=== PATIENT | female | born 1975 | race Caucasian/White ===

== ENCOUNTER 2019-03-27 21:05 | Inpatient (IN) ==
[2019-03-27] MEDS ORDERED: ONDANSETRON INJ 2 MG/ML 2 ML VIAL IV STA (22:18)
[2019-03-27] MEDS ORDERED: LEVOFLOXACIN/D5W 750 MG/150 ML BAG IV STA (22:18)
[2019-03-27] MEDS ORDERED: SODIUM CHLORIDE 0.9% 1000ML 1,000 ML IV SCH (22:30)
[2019-03-27] MEDS: MoRPHine SULFATE 4 MG/ML 1 ML CARP\\VIAL IV PRN ×2 (22:33→23:46)
[2019-03-27 22:50] LABS: Basophils # (auto) 0.01 K/uL (0-0.2); Basophils % (auto) 0.1 %; Eosinophils # (auto) 0.03 K/uL (0-0.5); Eosinophils % (auto) 0.2 %; Hematocrit (blood only) 43.6 % (37-47); Hemoglobin 15.2 g/dL (12.0-16.0); Immature Granulocytes # (auto) 0.08 K/uL (0.00-0.02); Immature Granulocytes % (auto) 0.5 %; Lymphocytes # (auto) 0.56 K/uL (1.2-3.4); Lymphocytes % (auto) 3.2 %; Mean Corpuscular Hemoglobin 32.9 pg (25-34); Mean Corpuscular Hgb Conc 34.9 g/dL (32-36); Mean Corpuscular Volume 94.4 fL (80-100); Mean Platelet Volume 11.2 fL (7.4-10.4); Monocytes # (auto) 1.41 K/uL (0.11-0.59); Neutrophils # (auto) 15.55 K/uL (1.4-6.5); Platelet Count 275 K/uL (130-400); RDW Coefficient of Variation 13.5 % (11.5-14.5); RDW Standard Deviation 46.5 fL (36.4-46.3); Red Blood Count 4.62 M/uL (4.2-5.4); White Blood Count 17.64 K/uL (4.8-10.8)
[2019-03-27 23:01] LABS: INR 1.1 (0.9-1.1); Partial Thromboplastin Time 28.4 Seconds (21.0-31.0)
[2019-03-27 23:09] LABS: Alanine Aminotransferase 17 U/L (12-78); Albumin Level 2.9 gm/dl (3.4-5.0); Aspartate Aminotransferase 5 U/L (15-37); BUN Creatinine Ratio 10.3 (10-20); Blood Urea Nitrogen 14 mg/dl (7-18); Calcium 9.1 mg/dl (8.5-10.1); Carbon Dioxide 23 mmol/L (21-32); Chloride 101 mmol/L (98-107); Creatinine Clr Calc Pharmacy 69.6 ml/min; Est GFR (Non-African American) 46.6; Glucose 148 mg/dl (70-99); Lipase 42 U/L (73-393); Potassium 3.2 mmol/L (3.5-5.1); Sodium 133 mmol/L (136-145)
[2019-03-27 23:11] LABS: Pregnancy Test, Serum Negative (Negative)
[2019-03-27 23:24] LABS: Albumin Globulin Ratio 0.7 (0.9-2); Alkaline Phosphatase 58 U/L (45-117); Bilirubin,Total 0.7 mg/dl (0.2-1); Globulin 4.2 gm/dl (2.5-4.0); Total Protein 7.1 gm/dl (6.4-8.2); Troponin I < 0.015 ng/ml (0-0.045)
[2019-03-27] MEDS ORDERED: SODIUM CHLORIDE 0.9% 1000ML 1,000 ML IV ONE (23:44)
[2019-03-28] MEDS ORDERED: IOVERSOL 100ml IV PRN (00:26)
[2019-03-28] MEDS ORDERED: metroNIDAZOLE 500 MG/100 ML BAG IV STA (00:29)
[2019-03-28 00:48] LABS: Appearance Urine Cloudy (Clear); Bacteria Urine Automated Negative (Negative); Blood Urine Negative (Negative); Color Urine Dark Yellow; Epithelial Cell Urine Auto >30 /lpf (0-5); Glucose Urine UA Negative (Negative); Ketones Urine Negative (Negative); Leukocyte Esterase Urine Trace (Negative); Nitrite Urine Positive (Negative); Protein Urine 1+ (Negative); RBC Urine Automated 0-4 /hpf (0-4); Specific Gravity Urine > 1.045 (1.000-1.030); Urobilinogen Urine Negative (Negative)
[2019-03-28] MEDS ORDERED: POTASSIUM CHLORIDE 40 MEQ in SODIUM CHLORIDE 0.9% 1000ML 1,000 ML IV STA (01:06)
[2019-03-28 01:18] LABS: Bilirubin Urine Negative (Negative); Ictotest Urine Negative (Negative)
[2019-03-28 01:31] LABS: Cast Urine Automated >30 /lpf (0-5)
[2019-03-28] MEDS: MoRPHine SULFATE 4 MG/ML 1 ML CARP\\VIAL IV PRN (01:54)
--- NOTE | 2019-03-28 02:00 | Emergency Department Note ---
Entered by Joanna Montanez acting as a scribe for Umberto Castellano DO History of Present Illness General Chief complaint: GI Assessment Stated complaint: GI PAIN- DIVERTICULITIS Time Seen by Provider: 03/27/19 22:12 Source: patient History of Present Illness Onset (ago): hour(s) (20) Location: abdomen Severity: similar to prior episodes Pain Consistency: + other (worsening ) Maximum Pain Intensity: 8 Associated symptoms: + fever/chills, + shortness of breath and + other (positive feeling bloated ) Treatments prior to arrival: NSAID (ibuprofen; aleve) and other (augmentin) The patient is a 44 year old female who presents to the Emergency Room with complaints of worsening abdominal pain that began 20 hours prior to arrival. She reports fevers and chills during this time. The patient states that she has been short of breath due to feeling bloated. The patient states that she was in the ED yesterday for similar symptoms that began 5 days ago but was discharged with Augmentin for diverticulitis. The patient states that she has taken 5 doses of the Augmentin. She reports taking Aleve and Ibuprofen for her current symptoms. The patient reports that she does not get a menstrual period because she has a Mirena. Home Medications Home Medications Medication Instructions Recorded Confirmed Type lisinopril-hydrochlorothiazide 1 tab PO QAM 02/04/18 03/27/19 History escitalopram oxalate 20 mg PO QAM 03/07/19 03/27/19 History trazodone 100 mg PO HS 03/07/19 03/27/19 History amoxicillin-pot clavulanate 1 tab PO BID #14 tab 03/25/19 03/27/19 Rx [Augmentin] naproxen 0 mg PO BID PRN 03/25/19 03/27/19 History Allergies Allergy/AdvReac Type Severity Reaction Status Date / Time apple Allergy Hives Verified 03/28/19 01:58 Past Med/Surg History Medical History No acute medical problems Surgical History No pertinent past surgical history Family History Other No pertinent family history in first degree relatives Social History Preferred Language: Amharic Feels Safe at Home: Yes Smoking Status: Current every day smoker Review of Systems See HPI for pertinent positives & negatives. and A total of 10 systems reviewed and were otherwise negative Physical Exam Vital Signs Vital Signs - 24 hr 03/27/19 21:20 03/27/19 22:51 03/27/19 23:41 Temperature 36.6 C Temperature Source Oral Pulse Rate 132 H Pulse Rate [Finger] 105 H Pulse Rhythm [Finger] Regular Pulse Strength [Finger] Normal Respiratory Rate 20 17 Respiratory Effort / Characteristics Non-Labored Spontaneous Respiratory Depth Normal Respiratory Pattern Regular Blood Pressure 97/67 L Blood Pressure [Right Arm] 113/64 Blood Pressure Mean 77 Blood Pressure Mean [Right Arm] 80 Blood Pressure Position [Right Arm] Lying Pulse Oximetry 96 95 96 Oxygen Delivery Method Room Air Room Air Room Air Sepsis Action Taken by Nursing No Action Required 03/28/19 01:12 03/28/19 02:03 Temperature 36.9 C Temperature Source Oral Pulse Rate Pulse Rate [Finger] 102 H 104 H Pulse Rhythm [Finger] Regular Regular Pulse Strength [Finger] Normal Normal Respiratory Rate 18 18 Respiratory Effort / Characteristics Non-Labored Spontaneous Non-Labored Spontaneous Respiratory Depth Normal Normal Respiratory Pattern Regular Regular Blood Pressure Blood Pressure [Right Arm] 101/65 127/71 Blood Pressure Mean Blood Pressure Mean [Right Arm] 77 89 Blood Pressure Position [Right Arm] Lying Lying Pulse Oximetry 96 97 Oxygen Delivery Method Room Air Room Air Sepsis Action Taken by Nursing GENERAL: Patient is awake, alert, and very uncomfortable appearing. EYES: The conjunctivae are clear. The pupils are round and reactive. EARS, NOSE, MOUTH AND THROAT: The nose is without any evidence of any deformity. Mucous membranes are moist.Tongue is midline NECK: The neck is nontender and supple. RESPIRATORY: Normal respiratory effort is noted. There is no evidence of wheezing rhonchi or rales to auscultation. CARDIOVASCULAR: Tachycardic rate and regular rhythm noted. There no murmurs rubs or gallops normal S1 normal S2 GASTROINTESTINAL: The abdomen is moderately distended and diffusely tender. Bowel sounds are present in all quadrants. There appeared to be diffuse guarding especially in the left upper and left lower quadrants. BACK: No midline tenderness or or step-off noted range of motion in flexion extension as well as rotation no signs of muscle spasm noted. MUSCULOSKELETAL/EXTREMITIES: There is no evidence of gross deformity. Full range of motion is noted in the hips and shoulders. SKIN: There is no obvious evidence of any rash. There are no petechiae, pallor or cyanosis noted. NEUROLOGIC: Patient is awake alert and oriented x3. Course Course 2216: Past medical records reviewed. The patient was evaluated in room C1B. A complete history and physical exam was performed. 0051: I discussed the case with Dr. [facility] who accepts the patient for further evaluation. 0054: I discussed the case with Dr. Cruz-General Surgery who states that he will evaluate the patient in the morning. Administered Medications Potassium Chloride 40 meq/ (Sodium Chloride) 1,020 mls @ 250 mls/hr IV .Q4H5M STA Stop: 03/28/19 05:10 Last Admin: 03/28/19 01:48 Dose: 250 mls/hr Documented by: [id number] Ioversol (Optiray 320 100ml) 100 ml IV ONCE PRN PRN Reason: Interaction Checking Stop: 04/01/19 00:25 Last Admin: 03/28/19 00:27 Dose: 93 ml Documented by: [id number] Morphine Sulfate (Morphine Sulfate) 4 mg IV Q15M PRN PRN Reason: Pain Stop: 04/10/19 22:17 Last Admin: 03/28/19 01:54 Dose: 4 mg Documented by: [id number] Admin: 03/27/19 23:46 Dose: 4 mg Documented by: [id number] Admin: 03/27/19 22:33 Dose: 4 mg Documented by: [id number] Discontinued Medications Sodium Chloride (Nss 1000ml) 1,000 mls @ 999 mls/hr IV .Q1H1M CAPRICE Stop: 03/27/19 23:30 Last Infusion: 03/27/19 23:41 Dose: 0 mls/hr Documented by: [id number] Admin: 03/27/19 22:35 Dose: 999 mls/hr Documented by: [id number] Levofloxacin/Dextrose (Levaquin/D5w) 750 mg in 150 mls @ 100 mls/hr IV NOW STA Stop: 03/27/19 23:47 Last Infusion: 03/28/19 00:30 Dose: 0 mls/hr Documented by: [id number] Admin: 03/27/19 22:42 Dose: 100 mls/hr Documented by: [id number] Sodium Chloride (Nss 1000ml) 1,000 mls @ 999 mls/hr IV .Q1H1M ONE Stop: 03/28/19 00:44 Last Infusion: 03/28/19 01:25 Dose: 0 mls/hr Documented by: [id number] Admin: 03/27/19 23:45 Dose: 999 mls/hr Documented by: [id number] Metronidazole (Flagyl) 500 mg in 100 mls @ 100 mls/hr IV NOW STA Stop: 03/28/19 01:28 Last Infusion: 03/28/19 02:01 Dose: 0 mls/hr Documented by: [id number] Admin: 03/28/19 00:33 Dose: 100 mls/hr Documented by: [id number] Ondansetron HCl (Zofran) 4 mg IV NOW STA Stop: 03/27/19 22:19 Last Admin: 03/27/19 22:30 Dose: 4 mg Documented by: [id number] Medical Decision Making Differential Diagnosis Differential diagnoses includes but is not limited to gastritis, peptic ulcer disease, GERD, gallbladder disease, pancreatitis, small bowel obstruction, acute coronary syndrome, pericarditis, ischemic bowel, irritable bowel disease, irritable bowel syndrome, appendicitis, diverticulitis, malignancy, hernia, urinary tract infection, torsion, /ectopic , perforation, trauma, infectious. Medical Records Attestation: I reviewed the patient's medical records. Home Medications Current Medication List: was personally reviewed by me Laboratory Data Attestation: I reviewed the patient's lab results. Result diagrams: 03/27/19 22:38 03/27/19 22:38 Lab Results 03/27/19 03/27/19 03/27/19 Range/Units 22:38 22:38 22:38 WBC (4.8-10.8) K/uL RBC (4.2-5.4) M/uL Hgb (12.0-16.0) g/dL Hct (37-47) % MCV (80-100) fL MCH (25-34) pg MCHC (32-36) g/dL RDW Std Deviation (36.4-46.3) fL RDW Coeff of Sean (11.5-14.5) % Plt Count (130-400) K/uL MPV (7.4-10.4) fL Immature Gran % (Auto) % Neut % (Auto) % Lymph % (Auto) % [place] % (Auto) % Eos % (Auto) % Baso % (Auto) % Immature Gran # (Auto) (0.00-0.02) K/uL Neut # (Auto) (1.4-6.5) K/uL Lymph # (Auto) (1.2-3.4) K/uL [place] # (Auto) (0.11-0.59) K/uL Eos # (Auto) (0-0.5) K/uL Baso # (Auto) (0-0.2) K/uL ESR 88 H (0-21) mm/hr PT 11.0 (9.0-12.0) Seconds INR 1.1 (0.9-1.1) APTT 28.4 (21.0-31.0) Seconds PTT Ratio 1.0 Sodium 133 L (136-145) mmol/L Potassium 3.2 L (3.5-5.1) mmol/L Chloride 101 (98-107) mmol/L Carbon Dioxide 23 (21-32) mmol/L Anion Gap 9.0 (3-11) BUN 14 (7-18) mg/dl Creatinine 1.39 H (0.6-1.2) mg/dl Est Cr Clr Drug Dosing 69.6 ml/min Est GFR ( Amer) 54.0 Est GFR (Non-Af Amer) 46.6 BUN/Creatinine Ratio 10.3 (10-20) Glucose 148 H (70-99) mg/dl Lactate (0.4-2.0) mmol/L Calcium 9.1 (8.5-10.1) mg/dl Magnesium 2.0 (1.8-2.4) mg/dl Total Bilirubin 0.7 (0.2-1) mg/dl AST 5 L (15-37) U/L ALT 17 (12-78) U/L Alkaline Phosphatase 58 (45-117) U/L Troponin I < 0.015 (0-0.045) ng/ml C-Reactive Protein 34.90 H (0-0.29) mg/dl Total Protein 7.1 (6.4-8.2) gm/dl Albumin 2.9 L (3.4-5.0) gm/dl Globulin 4.2 H (2.5-4.0) gm/dl Albumin/Globulin Ratio 0.7 L (0.9-2) Lipase 42 L (73-393) U/L TSH 5.470 H (0.300-4.500) uIu/ml HCG, Qual (Negative) Urine Color Urine Appearance (Clear) Urine pH (4.5-7.5) Ur Specific [place] (1.000-1.030) Urine Protein (Negative) Urine Glucose (UA) (Negative) Urine Ketones (Negative) Urine Blood (Negative) Urine Nitrite (Negative) Urine Bilirubin (Negative) Urine Urobilinogen (Negative) Ur Leukocyte Esterase (Negative) Urine WBC (Auto) (0-5) /hpf Urine RBC (Auto) (0-4) /hpf U Hyaline Cast (Auto) (0-5) /lpf U Epithel Cells (Auto) (0-5) /lpf Urine Bacteria (Auto) (Negative) Ur Renal Epithelial Cell Urine Yeast 03/27/19 03/27/19 03/28/19 Range/Units 22:38 22:38 00:37 WBC 17.64 H (4.8-10.8) K/uL RBC 4.62 (4.2-5.4) M/uL Hgb 15.2 (12.0-16.0) g/dL Hct 43.6 (37-47) % MCV 94.4 (80-100) fL MCH 32.9 (25-34) pg MCHC 34.9 (32-36) g/dL RDW Std Deviation 46.5 H (36.4-46.3) fL RDW Coeff of Sean 13.5 (11.5-14.5) % Plt Count 275 (130-400) K/uL MPV 11.2 H (7.4-10.4) fL Immature Gran % (Auto) 0.5 % Neut % (Auto) 88.0 % Lymph % (Auto) 3.2 % [place] % (Auto) 8.0 % Eos % (Auto) 0.2 % Baso % (Auto) 0.1 % Immature Gran # (Auto) 0.08 H (0.00-0.02) K/uL Neut # (Auto) 15.55 H (1.4-6.5) K/uL Lymph # (Auto) 0.56 L (1.2-3.4) K/uL [place] # (Auto) 1.41 H (0.11-0.59) K/uL Eos # (Auto) 0.03 (0-0.5) K/uL Baso # (Auto) 0.01 (0-0.2) K/uL ESR (0-21) mm/hr PT (9.0-12.0) Seconds INR (0.9-1.1) APTT (21.0-31.0) Seconds PTT Ratio Sodium (136-145) mmol/L Potassium (3.5-5.1) mmol/L Chloride (98-107) mmol/L Carbon Dioxide (21-32) mmol/L Anion Gap (3-11) BUN (7-18) mg/dl Creatinine (0.6-1.2) mg/dl Est Cr Clr Drug Dosing ml/min Est GFR ( Amer) Est GFR (Non-Af Amer) BUN/Creatinine Ratio (10-20) Glucose (70-99) mg/dl Lactate (0.4-2.0) mmol/L Calcium (8.5-10.1) mg/dl Magnesium (1.8-2.4) mg/dl Total Bilirubin (0.2-1) mg/dl AST (15-37) U/L ALT (12-78) U/L Alkaline Phosphatase (45-117) U/L Troponin I (0-0.045) ng/ml C-Reactive Protein (0-0.29) mg/dl Total Protein (6.4-8.2) gm/dl Albumin (3.4-5.0) gm/dl Globulin (2.5-4.0) gm/dl Albumin/Globulin Ratio (0.9-2) Lipase (73-393) U/L TSH (0.300-4.500) uIu/ml HCG, Qual Negative (Negative) Urine Color Dark Yellow Urine Appearance Cloudy A (Clear) Urine pH 5.0 (4.5-7.5) Ur Specific [place] > 1.045 H (1.000-1.030) Urine Protein 1+ H (Negative) Urine Glucose (UA) Negative (Negative) Urine Ketones Negative (Negative) Urine Blood Negative (Negative) Urine Nitrite Positive A (Negative) Urine Bilirubin Negative (Negative) Urine Urobilinogen Negative (Negative) Ur Leukocyte Esterase Trace H (Negative) Urine WBC (Auto) 10-30 H (0-5) /hpf Urine RBC (Auto) 0-4 (0-4) /hpf U Hyaline Cast (Auto) >30 H (0-5) /lpf U Epithel Cells (Auto) >30 H (0-5) /lpf Urine Bacteria (Auto) Negative (Negative) Ur Renal Epithelial Cell Not Reportable Urine Yeast Not Reportable 03/28/19 Range/Units 01:42 WBC (4.8-10.8) K/uL RBC (4.2-5.4) M/uL Hgb (12.0-16.0) g/dL Hct (37-47) % MCV (80-100) fL MCH (25-34) pg MCHC (32-36) g/dL RDW Std Deviation (36.4-46.3) fL RDW Coeff of Sean (11.5-14.5) % Plt Count (130-400) K/uL MPV (7.4-10.4) fL Immature Gran % (Auto) % Neut % (Auto) % Lymph % (Auto) % [place] % (Auto) % Eos % (Auto) % Baso % (Auto) % Immature Gran # (Auto) (0.00-0.02) K/uL Neut # (Auto) (1.4-6.5) K/uL Lymph # (Auto) (1.2-3.4) K/uL [place] # (Auto) (0.11-0.59) K/uL Eos # (Auto) (0-0.5) K/uL Baso # (Auto) (0-0.2) K/uL ESR (0-21) mm/hr PT (9.0-12.0) Seconds INR (0.9-1.1) APTT (21.0-31.0) Seconds PTT Ratio Sodium (136-145) mmol/L Potassium (3.5-5.1) mmol/L Chloride (98-107) mmol/L Carbon Dioxide (21-32) mmol/L Anion Gap (3-11) BUN (7-18) mg/dl Creatinine (0.6-1.2) mg/dl Est Cr Clr Drug Dosing ml/min Est GFR ( Amer) Est GFR (Non-Af Amer) BUN/Creatinine Ratio (10-20) Glucose (70-99) mg/dl Lactate 1.0 (0.4-2.0) mmol/L Calcium (8.5-10.1) mg/dl Magnesium (1.8-2.4) mg/dl Total Bilirubin (0.2-1) mg/dl AST (15-37) U/L ALT (12-78) U/L Alkaline Phosphatase (45-117) U/L Troponin I (0-0.045) ng/ml C-Reactive Protein (0-0.29) mg/dl Total Protein (6.4-8.2) gm/dl Albumin (3.4-5.0) gm/dl Globulin (2.5-4.0) gm/dl Albumin/Globulin Ratio (0.9-2) Lipase (73-393) U/L TSH (0.300-4.500) uIu/ml HCG, Qual (Negative) Urine Color Urine Appearance (Clear) Urine pH (4.5-7.5) Ur Specific [place] (1.000-1.030) Urine Protein (Negative) Urine Glucose (UA) (Negative) Urine Ketones (Negative) Urine Blood (Negative) Urine Nitrite (Negative) Urine Bilirubin (Negative) Urine Urobilinogen (Negative) Ur Leukocyte Esterase (Negative) Urine WBC (Auto) (0-5) /hpf Urine RBC (Auto) (0-4) /hpf U Hyaline Cast (Auto) (0-5) /lpf U Epithel Cells (Auto) (0-5) /lpf Urine Bacteria (Auto) (Negative) Ur Renal Epithelial Cell Urine Yeast Imaging Data Attestation: I personally reviewed and interpreted this imaging study as follows: My Impression: CHEST X-RAY: No acute disease. No free air. No infiltrate. KUB/ABDOMEN 1 VIEW: Nonspecific dilated small bowel loops noted. No free air or definite obstruction. Radiologist's Impression: Radiology results as stated below per my review and the radiologist's interpretation: CT ABDOMEN & PELVIS With Contrast: Small hiatal hernia and some fluid around the distal esophagus. Mild left coronary calcification. Mild abdominal ascites. In the lower mid abdomen loops of small bowel demonstrate mucosal thickening with fluid in the mesentery. Extraluminal foci of gas within the mesentery consistent with contained ruptures and small abscesses. Please also clinically correlate for Crohn's disease. Reactive mucosal thickening noted in the adjacent to the sigmoid colon which has moderate diverticulosis. Scattered diverticulosis of the left colon. Fluid in the colon suggestive of underlying diarrhea. Appendix is normal. Likely reactive mucosal thickening of the partially distended urinary bladder which also has a pocket with air-fluid level seen just superior to it measuring 4.1 x 4 cm. IUD within a retroverted uterus. Small dependent pelvic free fluid 3.4 cm left ovarian cyst L2-3, L3-4 disc space narrowing and vertebral body endplate sclerotic changes. Radiologist: Anusha Gorman MD Study ready at 00:28 and initial results transmitted at 00:43 Communications: Clear Time Type Notes Call Doctor Bowel Perforation with Free Air ECG Data Attestation: I personally reviewed and interpreted this ECG as follows: Indication: + abdominal pain Rate (beats per minute): 115 Rhythm: + sinus tachycardia ECG ST segments: no ST depression and no ST elevation ECG Findings: no PACs and no PVCs Comparison ECG Date: no prior available Blood Pressure Blood Pressure Findings: Normal blood pressure MDM Narrative The patient is a 44-year-old female who presented to the emergency department for an evaluation of abdominal pain. The patient was seen in our facility recently for similar complaints at that time she had a CAT scan which showed diverticulitis. She was started on Augmentin but presents emergency department today with severe pain. The patient's history and physical exam appear to be consistent with worsening diverticulitis. White blood cell count was elevated. This prompted a repeat CT of the abdomen and pelvis. The patient was treated with IV fluids IV pain medication and IV antiemetics. She was also started on IV antibiotics. I discussed the patient's laboratory and radiographic studies with her. She was found to have severe changes on her CAT scan which were worrisome for diverticulitis with perforation. I discussed this case with the on-call [facility] hospitalist group as well as the on-call general surgeon. They have agreed to evaluate the patient for further management and disposition. The patient was feeling much better on subsequent reevaluation. Impression & Plan Diverticulitis of intestine with perforation and abscess, Abdominal pain Discharge Plan Visit Data Chief Complaint: GI Assessment Stated Complaint: GI PAIN- DIVERTICULITIS ED Provider: Umberto Castellano Discharge Problem: Diverticulitis of intestine with perforation and abscess, Abdominal pain Patient Disposition: Being Evaluated by Hospitalist Forms Stand Alone Forms: My [facility] Prescriptions Prescriptions: No Action lisinopril-hydrochlorothiazide 20-12.5 mg tablet 1 tab PO QAM RF: 0 trazodone 100 mg tablet 100 mg PO HS RF: 0 escitalopram oxalate 20 mg tablet 20 mg PO QAM RF: 0 naproxen 250 mg Tablet 0 mg PO BID PRN (Reason: Pain) RF: 0 amoxicillin-pot clavulanate [Augmentin] 875-125 mg tablet 1 tab PO BID Qty: 14 RF: 0 Referrals Referrals: Connie Jaramillo DO [Primary Care Provider] - Discharge Problem: Diverticulitis of intestine with perforation and abscess Qualifiers: Diverticulitis site: unspecified part of intestinal tract Diverticulitis bleeding: without bleeding Qualified Code(s): K57.80 - Diverticulitis of intestine, part unspecified, with perforation and abscess without bleeding Abdominal pain Qualifiers: Abdominal location: generalized Qualified Code(s): R10.84 - Generalized abdominal pain The scribe's documentation has been prepared under my direction and personally reviewed by me in its entirety. I confirm that the note above accurately reflects all work, treatment, procedures, and medical decision making performed by me.
--- NOTE | 2019-03-28 02:26 | History & Physical Report ---
Date of Service March 28, 2019 Assessment & Plan (1) Severe sepsis: SIRS plus ARF Possible sources : Complicated diverticulitis Complicated UTI secondary to above Possible aspiration pneumonitis hypertension, stable anxiety/mood disorder, at baseline ongoing tobacco abuse. Hyperglycemia rule out DM Medical telemetry Bowel rest Cultures, check lactic acid IV Zosyn Surgery consult RE complicated diverticulitis (ER provider already in touch with Dr. Cruz.) Outpatient colonoscopy at some point Monitor creatinine response to IV fluids, hold home lisinopril, HCTZ until creatinine at baseline Check hemoglobin A1c Nicotine patch PRN DVT prophylaxis. Heparin subcu Full code History of Present Illness Chief Complaint: Worsening abdominal pain Primary Care Provider: Connie Jaramillo DO History obtained from patient, family, and records. Medical history significant for hypertension, anxiety/mood disorder, ongoing tobacco abuse. 5-day history of achy lower abdominal pain going to the back with dysuria, some diarrhea, and nausea and fever. Patient sent by PCP to ER last March 25. CT abdomen pelvis showed uncomplicated sigmoid diverticulitis. No abscess. Inflammatory changes associated with the urinary bladder. Patient discharged on Augmentin course. Worsening abdominal discomfort despite compliance with antibiotic regimen. Fever, emesis, some constipation. Junky cough symptoms with shortness of breath. At the ER, patient received IV Levaquin and Flagyl for complicated diverticulitis. Medical History as above No prior colonoscopies. 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 Allergies Allergy/AdvReac Type Severity Reaction Status Date / Time apple Allergy Hives Verified 03/28/19 01:58 Home Medications Home Medications Medication Instructions Recorded Confirmed Type lisinopril-hydrochlorothiazide 1 tab PO QAM 02/04/18 03/27/19 History escitalopram oxalate 20 mg PO QAM 03/07/19 03/27/19 History trazodone 100 mg PO HS 03/07/19 03/27/19 History amoxicillin-pot clavulanate 1 tab PO BID #14 tab 03/25/19 03/27/19 Rx [Augmentin] naproxen 0 mg PO BID PRN 03/25/19 03/27/19 History Past Med/Surg History Medical History No acute medical problems Surgical History No pertinent past surgical history Family History Other No pertinent family history in first degree relatives Social History Preferred Language: [place] Feels Safe at Home: Yes Smoking Status: Current every day smoker Review of Systems Review of Systems: As per HPI, all 10 systems reviewed, all other ROS negative Physical Exam Physical Exam: GENERAL: Comfortable, obese, slightly anxious, no respiratory distress SKIN: Normal color, warm HEENT: Bespectacled, pink palpebral conjunctivae, no ptosis, dry buccal mucosa NECK : Supple, short neck, no tenderness CHEST : CTA, no tenderness HEART : Tachycardic , no obvious murmurs ABDOMEN: Some distention, hypogastric tenderness EXTREMITIES : No LE swelling/tenderness, no other conspicuous deformities noted NEUROLOGIC : Coherent, no facial asymmetry, no other gross focality Results & Data Vital Signs (Past 12 Hours) Vital Signs Temp Pulse Pulse Resp BP BP Pulse Ox 03/28/19 02:03 104 H 18 127/71 97 03/28/19 01:12 36.9 C 102 H 18 101/65 96 03/27/19 23:41 105 H 17 113/64 96 03/27/19 22:51 95 03/27/19 21:20 36.6 C 132 H 20 97/67 L 96 Laboratory Results Laboratory Results WBC 17.64 K/uL (4.8-10.8) H 03/27/19 22:38 RBC 4.62 M/uL (4.2-5.4) 03/27/19 22:38 Hgb 15.2 g/dL (12.0-16.0) 03/27/19 22:38 Hct 43.6 % (37-47) 03/27/19 22:38 MCV 94.4 fL (80-100) 03/27/19 22:38 MCH 32.9 pg (25-34) 03/27/19 22:38 MCHC 34.9 g/dL (32-36) 03/27/19 22:38 RDW Std Deviation 46.5 fL (36.4-46.3) H 03/27/19 22:38 RDW Coeff of Sean 13.5 % (11.5-14.5) 03/27/19 22:38 Plt Count 275 K/uL (130-400) 03/27/19 22:38 MPV 11.2 fL (7.4-10.4) H 03/27/19 22:38 Immature Gran % (Auto) 0.5 % 03/27/19 22:38 Neut % (Auto) 88.0 % 03/27/19 22:38 Lymph % (Auto) 3.2 % 03/27/19 22:38 [place] % (Auto) 8.0 % 03/27/19 22:38 Eos % (Auto) 0.2 % 03/27/19 22:38 Baso % (Auto) 0.1 % 03/27/19 22:38 Immature Gran # (Auto) 0.08 K/uL (0.00-0.02) H 03/27/19 22:38 Neut # (Auto) 15.55 K/uL (1.4-6.5) H 03/27/19 22:38 Lymph # (Auto) 0.56 K/uL (1.2-3.4) L 03/27/19 22:38 [place] # (Auto) 1.41 K/uL (0.11-0.59) H 03/27/19 22:38 Eos # (Auto) 0.03 K/uL (0-0.5) 03/27/19 22:38 Baso # (Auto) 0.01 K/uL (0-0.2) 03/27/19 22:38 ESR 88 mm/hr (0-21) H 03/27/19 22:38 PT 11.0 Seconds (9.0-12.0) 03/27/19 22:38 INR 1.1 (0.9-1.1) 03/27/19:38 APTT 28.4 Seconds (21.0-31.0) 03/27/19: PTT Ratio 1.0 03/27/19 22:38 Sodium 133 mmol/L (136-145) L 03/27/19 22:38 Potassium 3.2 mmol/L (3.5-5.1) L 03/27/19:38 Chloride 101 mmol/L (98-107) 03/27/19:38 Carbon Dioxide 23 mmol/L (21-32) 03/27/19 22:38 Anion Gap 9.0 (3-11) 03/27/19 22:38 BUN 14 mg/dl (7-18) 03/27/19 22:38 Creatinine 1.39 mg/dl (0.6-1.2) H 03/27/19 22:38 Est Cr Clr Drug Dosing 69.6 ml/min 03/27/19 22:38 Est GFR ( Amer) 54.0 03/27/19 22:38 Est GFR (Non-Af Amer) 46.6 03/27/19 22:38 BUN/Creatinine Ratio 10.3 (10-20) 03/27/19 22:38 Glucose 148 mg/dl (70-99) H 03/27/19 22:38 Lactate 1.0 mmol/L (0.4-2.0) 03/28/19 01:42 Calcium 9.1 mg/dl (8.5-10.1) 03/27/19 22:38 Magnesium 2.0 mg/dl (1.8-2.4) 03/27/19 22:38 Total Bilirubin 0.7 mg/dl (0.2-1) 03/27/19 22:38 AST 5 U/L (15-37) L 03/27/19 22:38 ALT 17 U/L (12-78) 03/27/19 22:38 Alkaline Phosphatase 58 U/L (45-117) 03/27/19 22:38 Troponin I < 0.015 ng/ml (0-0.045) 03/27/19 22:38 C-Reactive Protein 34.90 mg/dl (0-0.29) H 03/27/19 22:38 Total Protein 7.1 gm/dl (6.4-8.2) 03/27/19 22:38 Albumin 2.9 gm/dl (3.4-5.0) L 03/27/19 22:38 Globulin 4.2 gm/dl (2.5-4.0) H 03/27/19 22:38 Albumin/Globulin Ratio 0.7 (0.9-2) L 03/27/19 22:38 Lipase 42 U/L (73-393) L 03/27/19 22:38 TSH 5.470 uIu/ml (0.300-4.500) H 03/27/19 22:38 HCG, Qual Negative (Negative) 03/27/19 22:38 Urine Color Dark Yellow 03/28/19 00:37 Urine Appearance Cloudy (Clear) A 03/28/19 00:37 Urine pH 5.0 (4.5-7.5) 03/28/19 00:37 Ur Specific [place] > 1.045 (1.000-1.030) H 03/28/19 00:37 Urine Protein 1+ (Negative) H 03/28/19 00:37 Urine Glucose (UA) Negative (Negative) 03/28/19 00:37 Urine Ketones Negative (Negative) 03/28/19: Urine Blood Negative (Negative) 03/28/19: Urine Nitrite Positive (Negative) A 03/28/19 00:37 Urine Bilirubin Negative (Negative) 03/28/19 00:37 Urine Urobilinogen Negative (Negative) 03/28/19 00:37 Ur Leukocyte Esterase Trace (Negative) H 03/28/19 00:37 Urine WBC (Auto) 10-30 /hpf (0-5) H 03/28/19 00:37 Urine RBC (Auto) 0-4 /hpf (0-4) 03/28/19 00:37 U Hyaline Cast (Auto) >30 /lpf (0-5) H 03/28/19 00:37 U Epithel Cells (Auto) >30 /lpf (0-5) H 03/28/19 00:37 Urine Bacteria (Auto) Negative (Negative) 03/28/19 00:37 Ur Renal Epithelial Cell Not Reportable 03/28/19 00: Urine Yeast Not Reportable 03/28/19 00:[address] abdomen pelvis initial read mild abdominal ascites, sigmoid diverticulitis with extraluminal foci of gas within the mesentery consistent with contained rupture and small abscesses. Reactive changes noted with partially distended urinary bladder. IUD within retroverted uterus. Chest x-ray as per my interpretation atelectasis EKG as per my interpretation : rate 115, sinus tachycardia, normal axis, no ischemia
[2019-03-28 02:31] LABS: T4 Free Thyroxine 1.78 ng/dl (0.8-1.6)
[2019-03-28] MEDS ORDERED: PIPERACILL/TAZOBAC CONSULT ACTIVE PRN (03:45)
[2019-03-28] MEDS ORDERED: PROMETHAZINE HCL 12.5 MG in SODIUM CHLORIDE 0.9% 50 ML IV PRN (03:45)
[2019-03-28] MEDS ORDERED: PIPERACILLIN/TAZOBACTAM 4.5 GM/120 ML BAG IV ONE (04:00)
[2019-03-28] MEDS: POTASSIUM CHLORIDE 40 MEQ in SODIUM CHLORIDE 0.9% 1000ML 1,000 ML IV SCH ×2 (04:51→18:05)
[2019-03-28] MEDS ORDERED: INFLUENZA ADMINISTRATION CHARGE ONE (05:05)
[2019-03-28] MEDS ORDERED: INFLUENZA VIRUS QUAD VACCINE 0.5 ML SYR IM ONE (05:05)
[2019-03-28] MEDS: POTASSIUM CHLORIDE / WTR 10 MEQ/100 ML PLCT IV SCH ×4 (05:25→09:13)
[2019-03-28] MEDS: NICOTINE 21 MG/24 HR TDSY TD SCH (05:25)
[2019-03-28 05:57] LABS: Hematocrit (blood only) 33.9 % (37-47); Hemoglobin 11.5 g/dL (12.0-16.0); Mean Corpuscular Hemoglobin 32.1 pg (25-34); Mean Corpuscular Hgb Conc 33.9 g/dL (32-36); Mean Corpuscular Volume 94.7 fL (80-100); Mean Platelet Volume 11.1 fL (7.4-10.4); Platelet Count 223 K/uL (130-400); RDW Coefficient of Variation 13.5 % (11.5-14.5); RDW Standard Deviation 47.2 fL (36.4-46.3); Red Blood Count 3.58 M/uL (4.2-5.4); White Blood Count 11.17 K/uL (4.8-10.8)
[2019-03-28 05:58] LABS: Eosinophils # (auto) 0.05 K/uL (0-0.5); Eosinophils % (auto) 0.4 %; Immature Granulocytes # (auto) 0.03 K/uL (0.00-0.02); Immature Granulocytes % (auto) 0.3 %; Lymphocytes # (auto) 0.57 K/uL (1.2-3.4); Lymphocytes % (auto) 5.1 %; Monocytes % (auto) 6.3 %; Neutrophils # (auto) 9.82 K/uL (1.4-6.5); Neutrophils % (auto) 87.9 %
--- NOTE | 2019-03-28 06:07 | Surgery Consultation ---
Date of Consultation March 28, 2019 Assessment & Plan (1) Diverticulitis: Patient appears to be mildly improved overnight He does have relatively severe diverticulitis inflammation of the colon and small bowel in the pelvis She will require limited p.o. intake for at least 48 hours ice only-for bowel rest I suspect she will need at least 4 to 5 days of IV antibiotics in the hospital and possibly 2 to 3 weeks of antibiotics possible IV as an outpatient Will likely undergo repeat CAT scan in several days ending on her progress History of Present Illness Attending Physician: Alexander Juan MD History of Present Illness 44-year-old female presenting to the emergency room for the second time in several days with abdominal pain She was treated with p.o. antibiotics for diverticulitis and the pain worsened with Alberto CT findings Have significant inflammation in the pelvis possible contained perforation with no evidence of overt abscess She is currently on IV antibiotics and does feel better-we will continue the Zosyn May consider an ID consult biotic choices in the future depending on progress Allergies Allergy/AdvReac Type Severity Reaction Status Date / Time apple Allergy Hives Verified 03/28/19 01:58 Home Medications Home Medications Medication Instructions Recorded Confirmed Type lisinopril-hydrochlorothiazide 1 tab PO QAM 02/04/18 03/27/19 History escitalopram oxalate 20 mg PO QAM 03/07/19 03/27/19 History trazodone 100 mg PO HS 03/07/19 03/27/19 History amoxicillin-pot clavulanate 1 tab PO BID #14 tab 03/25/19 03/27/19 Rx [Augmentin] naproxen 0 mg PO BID PRN 03/25/19 03/27/19 History Patient History Medical History No acute medical problems Surgical History No pertinent past surgical history Family History Other No pertinent family history in first degree relatives Social History Preferred Language: Moroccan Communication Ability: Effective Beliefs That Will Affect Care: None Current Living Situation: Parent Other Information That Helps Us Care for You: No Feels Safe at Home: Yes Smoking Status: Current every day smoker Tobacco Type: cigarettes ; Cigarettes Per Day: 10-20 ; Do You Dip or Chew Tobacco: No ; Second Hand Exposure: No ; Tobacco Cessation Education Requested by Patient: No Hx Alcohol Use: Yes Hx Substance Use: No Review of Systems Review of Systems: All systems reviewed & are unremarkable except as noted in HPI & below Physical Exam Physical Exam: He is awake and alert and appears no distress with normal affect Her abdomen is mildly distended with decreased bowel sounds and lower abdominal discomfort to palpation Constitutional: well developed and well nourished; no acute distress Eyes: + anicteric sclerae Respiratory: normal respiratory effort; no respiratory distress Cardiovascular: Rate/Rhythm: regular rate Skin: no rashes, warm and dry Neurologic: awake Psychiatric: Orientation: alert Results & Data Vital Signs (Past 12 Hours) Vital Signs Temp Pulse Pulse Resp BP BP BP 03/28/19 04:56 36.6 C 105 H 18 97/64 L 03/28/19 02:03 104 H 18 127/71 03/28/19 01:12 36.9 C 102 H 18 101/65 03/27/19 23:41 105 H 17 113/64 03/27/19 22:51 03/27/19 21:20 36.6 C 132 H 20 97/67 L Pulse Ox 03/28/19 04:56 95 03/28/19 02:03 97 03/28/19 01:12 96 03/27/19 23:41 96 03/27/19 22:51 95 03/27/19 21:20 96 PG Care Time/CCT Total # of Minutes Spent Total Time Spent with Patient: Total time spent is greater than 50% in coordination of care (as documented) at patient's floor/unit and/or counseling patient: Coding Level of Care Code 26385 Inpt Consult Level 4 Diagnoses Diverticulitis K57.92
[2019-03-28] MEDS: HEPARIN SOD 5,000 UNIT/0.5 ML VIAL SQ SCH ×3 (06:14→21:18)
[2019-03-28 06:20] LABS: Estimated Average Glucose 131 mg/dl; Hemoglobin A1C 6.2 % (4.5-5.6)
[2019-03-28 06:29] LABS: BUN Creatinine Ratio 17.1 (10-20); Creatinine Clr Calc Pharmacy 112.4 ml/min; Est GFR (African American) 93.9; Potassium 3.6 mmol/L (3.5-5.1)
--- NOTE | 2019-03-28 06:36 | XRay Report ---
KUB HISTORY: Acute generalized abdominal pain with constipation and diarrhea pain COMPARISON: CT abdomen and pelvis of same day FINDINGS: There is a single mildly dilated loop of small bowel within central abdomen, 3.4 cm transve rsely. There are a few right hemicolon fluid levels noted. IUD of the central pelvis. No renal calcu li. No ureteral calculi. No pneumoperitoneum or pneumatosis. No fracture. IMPRESSION: 1. Dilated small bowel of the central abdomen with right hemicolon air-fluid levels. No high-grade deborah wel obstruction identified. Please refer to CT abdomen and pelvis study of same day for further detai ls. ACT 112: Negative or not required by law. The above report was generated using voice recognition software. It may contain grammatical, syntax o r spelling errors. Electronically signed by: Erik Carrillo M.D. 03/28/2019 6:34 AM
--- NOTE | 2019-03-28 07:00 | XRay Report ---
XR chest 1V portable CLINICAL HISTORY: pain COMPARISON STUDY: No previous studies for comparison. FINDINGS: Lung volumes are normal. Lungs are clear. There is no pneumothorax or pleural effusion. Car diac size is normal. Mediastinal contours are normal. There is no evidence for pulmonary edema. IMPRESSION: No acute cardiopulmonary findings. ACT 112: Negative or not required by law. Electronically signed by: Cedric Josue M.D. 03/28/2019 6:59 AM
--- NOTE | 2019-03-28 07:32 | CT Scan Report ---
CT abd pelvis IV con only CLINICAL HISTORY: 44 years-old Female presenting with worsening generalized abdominal pain, recent di verticulitis. TECHNIQUE: Multidetector CT of the abdomen and pelvis was performed after the administration of intra venous contrast. IV contrast: 92 mL of Optiray 320. One or more dose lowering techniques were used co nsistent with the principles of ALARA (as low as reasonably achievable), including automatic exposure control, mA or kV adjustment to individual patient size, and/or use of iterative reconstruction. COMPARISON: Noncontrast CT of the abdomen and pelvis from 03/25/2019. CT DOSE (mGy.cm): The estimated cumulative dose is 1555.21 mGy.cm. FINDINGS: Head Shipper topogram: Unremarkable. Lung bases: Normal heart size. Coronary artery calcification. No pericardial or pleural effusion. No focal infiltrate or nodule at the lung bases. Liver: Normal morphology. No liver lesion. Patent hepatic vasculature. Biliary: No intrahepatic or extrahepatic biliary ductal dilatation. Normal gallbladder. Pancreas: Normal. Spleen: Normal. Adrenal glands: Normal. Kidneys and ureters: Punctate nonobstructing LEFT renal calculus at the upper pole. Normal renal pare nchyma. No hydronephrosis. Ureters nondistended. Bladder: Underdistended though significant bladder wall thickening and perivesicular fat infiltration is present. Pelvic organs: Intrauterine device is in place. Globular morphology of the posterior wall of the fund us may suggest an underlying fibroid. Ovaries normal. Bowel: Mild wall thickening of the rectum. Fluid throughout the colon suggests a diarrheal state. Wal l thickening of the proximal to mid sigmoid colon with diverticulosis. While there is pericolonic inf lammatory change in this region, this does not appear to be epicenter of the worst inflammation. The appendix is normal. Significantly thickened and inflamed small bowel in the superior pelvis, which is distal ileum proximally 20 cm upstream from the terminal ileum. This affects a fairly extensive nargis th of small bowel (likely greater than 30 cm). Significant surrounding perienteric fat infiltration. Multiple foci of extraluminal gas primarily in the superior pelvis that are also visualized in the up per abdomen. Gas is also contained within several collections within the mesentery and between the lo ops of bowel. The best delineated collection is noted in the central pelvis measuring 3 cm (series 3 image 376). There is a second collection along the superior and anterior bladder measuring approximat sriram 3.5 cm (series 3 image 417). There is also more mild bowel wall thickening in the jejunum. No bow el obstruction. Peritoneal cavity: Scattered interloop fluid with small volume ascites in the abdomen and pelvis. Num erous foci of extraluminal gas, several contained within collections in several along the superior pe lvis with limited amounts in the upper abdomen. Trace peritoneal enhancement may be present in the cu l-de-sac. Lymph nodes: No enlarged lymph nodes in the abdomen or pelvis. Vasculature: Atherosclerosis of the normal caliber abdominal aorta. IVC patent. Abdominal wall: Normal. Musculoskeletal: Degenerative changes of the spine. IMPRESSION: 1. Significant interval worsening of inflammatory changes in the superior pelvis, which appear to em anate from small bowel rather than the sigmoid colon. Numerous foci of extraluminal gas primarily in the superior pelvis though to a lesser extent in the upper abdomen consistent with perforated hollow viscus. Several developing abscesses are evident in the superior pelvis measuring up to 3.5 cm. Findi ngs are most suggestive of a severe infectious or inflammatory enteritis. Crohn's disease is not favo red though is not excluded. Patent vasculature without evidence to suggest an ischemic etiology. Find ings do not appear to be primarily a result of colonic diverticulosis. Surgical consultation is recom mended. 2. Evidence of developing peritonitis. 3. Significant likely secondary inflammatory change of the urinary bladder. 4. IUD in place. The report will be called/faxed according to standard departmental protocol. ACT 112: Negative or not required by law. Electronically signed by: Corey Brooks M.D. 03/28/2019 7:31 AM
[2019-03-28] MEDS: ACETAMINOPHEN 1,000 MG/100 ML VIAL IV PRN (07:43)
[2019-03-28] MEDS: ESCITALOPRAM OXALATE 20 MG TAB PO SCH (08:07)
[2019-03-28] MEDS: ALBUT/IPRATROP 3MG/0.5MG NEB 3 ML VIAL NEB PRN ×2 (10:30→20:14)
[2019-03-28] MEDS: PIPERACILLIN/TAZOBACTAM 4.5 GM/120 ML BAG IV SCH ×2 (10:44→18:04)
--- NOTE | 2019-03-28 11:03 | Hospitalist Progress Note ---
Date of Service March 28, 2019 Assessment & Plan (1) Sepsis: Meet sepsis criteria on admission with tachycardia, elevated WBC and diverticulitis on CT scan Received Levaquin and flagyl IV in the ER WBC 17K on admission, improves to 11K today UA positive for nitrate and trace leukocytes Urine cx and blood cx pending Currently on IV Zosyn Continue Monitor CBC (2) Diverticulitis: (3) Abdominal pain: Present on admission with worsening abdominal pain associated with bloating Failed outpatient treatment with Augmentin CT abd showed significant interval worsening of inflammatory changes in the superior pelvis, which appear to emanate from small bowel rather than the sigmoid colon. Numerous foci of extraluminal gas primarily in the superior pelvis though to a lesser extent in the upper abdomen consistent with perforated hollow viscus. Several developing abscesses are evident in the superior pelvis measuring up to 3.5 cm Surgery on board recommended conservative management with IV Zosyn and bowel rest Continue to keep NPO with ice and chips Continue pain control and IVF Will need to arrange for outpatient colonoscopy in 6 to 8 weeks MARISEL Possible related to poor oral intake Creatinine on admission 1.3 Creatinine improves to 0.8 after IVF Will continue to hold HCTZ Will resume Lisinopril in am Continue monitor BMP HTN BP stable Continue to hold HCTZ Will resume Lisinopril in am DVT px on heparin subq Code Status Full Code Admission and Anticipated Discharge Date Admission Date: March 28, 2019 Subjective Pt was seen and examined. Lying in bed with no distress Pt said that she continues to have pain but pain slightly improves compared to yesterday Pt said that pain is located in the lower abdomen and feels bloated She said that she felt nauseated Denies any chest pain, palpitation and SOB Physical Exam Physical Exam: General- No acute distress Head- atraumatic Eyes- PERRL, EOMI, ENT- oropharynx clear Neck- supple, no JVD Lungs- clear to auscultation Heart- regular rhythm; no murmur Abdomen- +tenderness, +mild distended Extremities- no calf tenderness Neuro- alert, oriented x 3; PERRL, EOMI; no facial palsy; no dysarthria Skin- warm & dry Results & Data ([facility]) Vital Signs (Past 12 Hours) Vital Signs Temp Pulse Resp BP BP Pulse Ox 03/28/19 10:32 103 H 14 96 03/28/19 07:45 36.6 C 99 H 16 110/71 94 03/28/19 04:56 36.6 C 105 H 18 97/64 L 95 03/28/19 02:03 104 H 18 127/71 97 03/28/19 01:12 36.9 C 102 H 18 101/65 96 03/27/19 23:41 105 H 17 113/64 96 (1) Abdominal pain Abdominal location: generalized Qualified Code(s): R10.84 - Generalized abdominal pain
--- NOTE | 2019-03-28 16:39 | Electrocardiogram Report ---
Test Reason : Blood Pressure : / mmHG Vent. Rate : 115 BPM Atrial Rate : 115 BPM P-R Int : 134 ms QRS Dur : 072 ms QT Int : 330 ms P-R-T Axes : 032 047 058 degrees QTc Int : 456 ms Sinus tachycardia Otherwise normal ECG No previous ECGs available Confirmed by Sebastian Diez ([id number]) on 03/28/2019 4:38:46 PM Referred By: REFERRED SELF Confirmed By:Sebastian Diez
[2019-03-28] MEDS: HYDROmorphone INJ 0.5 MG/0.5 ML SYR IV PRN (18:16)
[2019-03-28] MEDS ORDERED: ONDANSETRON INJ 2 MG/ML 2 ML VIAL IV PRN (18:29)
[2019-03-28] MEDS: TRAZODONE HCL 100 MG TAB PO SCH (21:18)
[2019-03-29] MEDS: PIPERACILLIN/TAZOBACTAM 4.5 GM/120 ML BAG IV SCH ×3 (01:50→17:44)
[2019-03-29] MEDS: HYDROmorphone INJ 0.5 MG/0.5 ML SYR IV PRN ×2 (02:24→07:36)
[2019-03-29] MEDS: HEPARIN SOD 5,000 UNIT/0.5 ML VIAL SQ SCH ×3 (05:29→23:06)
[2019-03-29 07:58] LABS: Hematocrit (blood only) 33.8 % (37-47); Hemoglobin 11.3 g/dL (12.0-16.0); Mean Corpuscular Hgb Conc 33.4 g/dL (32-36); Mean Corpuscular Volume 95.8 fL (80-100); Mean Platelet Volume 10.9 fL (7.4-10.4); Platelet Count 229 K/uL (130-400); RDW Coefficient of Variation 13.8 % (11.5-14.5); Red Blood Count 3.53 M/uL (4.2-5.4); White Blood Count 9.89 K/uL (4.8-10.8)
[2019-03-29] MEDS: POTASSIUM CHLORIDE 40 MEQ in SODIUM CHLORIDE 0.9% 1000ML 1,000 ML IV SCH (08:04)
[2019-03-29 08:42] LABS: BUN Creatinine Ratio 24.7 (10-20); Calcium 8.6 mg/dl (8.5-10.1); Creatinine Clr Calc Pharmacy 170.5 ml/min; Est GFR (African American) 131.8; Est GFR (Non-African American) 113.7; Potassium 4.2 mmol/L (3.5-5.1)
[2019-03-29] MEDS: ESCITALOPRAM OXALATE 20 MG TAB PO SCH (09:24)
[2019-03-29] MEDS: lisinopriL 20 MG TAB PO SCH (09:24)
[2019-03-29] MEDS: NICOTINE 21 MG/24 HR TDSY TD SCH (09:25)
--- NOTE | 2019-03-29 10:11 | Surgery Progress Note ---
Date of Service March 29, 2019 Assessment & Plan (1) Diverticulitis of intestine with perforation and abscess: Diverticulitis or enteritis with small abscess formation. Subjectively improved today WBC has decreased Would continue with IV antibiotics and conservative measures for now. Subjective Feels some better today Had pain through the night but that has decreased Denies nausea and vomiting Had a few episodes of diarrhea this morning Physical Exam Gastrointestinal (Abdomen): Inspection/Auscultation: normal bowel sounds; abdomen not distended Percussion/Palpation: + abdomen tender (But less so) and abdomen soft Results & Data Vital Signs (Past 12 Hours) Vital Signs Temp Pulse Pulse Resp BP BP Pulse Ox 03/29/19 07:12 36.7 C 95 H 18 116/80 97 03/29/19 07:07 96 H 03/29/19 03:32 36.6 C 92 H 18 107/69 95 03/28/19 23:32 36.7 C 96 H 20 107/70 95 03/28/19 23:00 100 H Laboratory Results 03/29/19 03/29/19 Range/Units 07:42 07:42 WBC 9.89 (4.8-10.8) K/uL RBC 3.53 L (4.2-5.4) M/uL Hgb 11.3 L (12.0-16.0) g/dL Hct 33.8 L (37-47) % MCV 95.8 (80-100) fL MCH 32.0 (25-34) pg MCHC 33.4 (32-36) g/dL RDW Std Deviation 48.0 H (36.4-46.3) fL RDW Coeff of Sean 13.8 (11.5-14.5) % Plt Count 229 (130-400) K/uL MPV 10.9 H (7.4-10.4) fL Sodium 140 (136-145) mmol/L Potassium 4.2 D (3.5-5.1) mmol/L Chloride 111 H (98-107) mmol/L Carbon Dioxide 24 (21-32) mmol/L Anion Gap 5.0 (3-11) BUN 14 (7-18) mg/dl Creatinine 0.58 L D (0.6-1.2) mg/dl Est Cr Clr Drug Dosing 170.5 ml/min Est GFR ( Amer) 131.8 Est GFR (Non-Af Amer) 113.7 BUN/Creatinine Ratio 24.7 H (10-20) Glucose 82 (70-99) mg/dl Calcium 8.6 (8.5-10.1) mg/dl (1) Diverticulitis of intestine with perforation and abscess Diverticulitis bleeding: without bleeding Diverticulitis site: unspecified part of intestinal tract Qualified Code(s): K57.80 - Diverticulitis of intestine, part unspecified, with perforation and abscess without bleeding
[2019-03-29] MEDS: ALBUT/IPRATROP 3MG/0.5MG NEB 3 ML VIAL NEB PRN (14:09)
--- NOTE | 2019-03-29 15:59 | Hospitalist Progress Note ---
Date of Service March 29, 2019 Assessment & Plan (1) Sepsis: Meet sepsis criteria on admission with tachycardia, elevated WBC and diverticulitis on CT scan Received Levaquin and flagyl IV in the ER WBC 17K on admission, continue improving to 9K today UA positive for nitrate and trace leukocytes Urine cx and blood cx no growth Currently on IV Zosyn Case discussed with surgery and ok to start on clear liquid diet Clinically improves (2) Diverticulitis: (3) Abdominal pain: Present on admission with worsening abdominal pain associated with bloating Failed outpatient treatment with Augmentin CT abd showed significant interval worsening of inflammatory changes in the superior pelvis, which appear to emanate from small bowel rather than the sigmoid colon. Numerous foci of extraluminal gas primarily in the superior pelvis though to a lesser extent in the upper abdomen consistent with perforated hollow viscus. Several developing abscesses are evident in the superior pelvis measuring up to 3.5 cm Surgery on board recommended conservative management with IV Zosyn and bowel rest Continue to keep NPO with ice and chips Continue pain control and IVF Will need to arrange for outpatient colonoscopy in 6 to 8 weeks MARISEL Possible related to poor oral intake Creatinine on admission 1.3 Creatinine improves to 0.8 after IVF Will continue to hold HCTZ Will resume Lisinopril in am Continue monitor BMP HTN BP stable Continue to hold HCTZ Will resume Lisinopril in am DVT px on heparin subq Code Status Full Code Admission and Anticipated Discharge Date Admission Date: March 28, 2019 Subjective Pt was seen and examined Lying in bed with no distress Pt said that pain slightly improves She said that she had diarrhea today She would like to eat something because she is hungry Denies any chest pain, palpitation and dizziness Physical Exam Physical Exam: General- No acute distress Head- atraumatic Eyes- PERRL, EOMI, ENT- oropharynx clear Neck- supple, no JVD Lungs- clear to auscultation Heart- regular rhythm; no murmur Abdomen- +tenderness, +mild distended Extremities- no calf tenderness Neuro- alert, oriented x 3; PERRL, EOMI; no facial palsy; no dysarthria Skin- warm & dry Results & Data ([facility]) Vital Signs (Past 12 Hours) Vital Signs Temp Pulse Pulse Resp BP BP Pulse Ox 03/29/19 15:03 36.5 C 103 H 18 124/79 93 03/29/19 14:20 99 H 03/29/19 14:11 91 H 16 96 03/29/19 11:14 36.7 C 109 H 18 124/71 95 03/29/19 07:12 36.7 C 95 H 18 116/80 97 03/29/19 07:07 96 H (1) Abdominal pain Abdominal location: generalized Qualified Code(s): R10.84 - Generalized abdominal pain
[2019-03-29] MEDS: ACETAMINOPHEN 1,000 MG/100 ML VIAL IV PRN (16:13)
[2019-03-29] MEDS ORDERED: ACETAMINOPHEN 325 MG TAB PO PRN (21:02)
[2019-03-29] MEDS ORDERED: LACTATED RINGER'S 1,000 ML IV ONE (21:02)
[2019-03-29] MEDS: TRAMADOL HCL 50 MG TABLET PO PRN (21:52)
[2019-03-29] MEDS: TRAZODONE HCL 100 MG TAB PO SCH (23:23)
[2019-03-30] MEDS: PIPERACILLIN/TAZOBACTAM 4.5 GM/120 ML BAG IV SCH ×3 (01:23→17:45)
[2019-03-30] MEDS: TRAMADOL HCL 50 MG TABLET PO PRN (03:26)
[2019-03-30] MEDS: HYDROmorphone INJ 0.5 MG/0.5 ML SYR IV PRN ×3 (06:48→20:14)
[2019-03-30 07:13] LABS: Hematocrit (blood only) 36.7 % (37-47); Hemoglobin 12.3 g/dL (12.0-16.0); Mean Corpuscular Hemoglobin 31.7 pg (25-34); Mean Corpuscular Hgb Conc 33.5 g/dL (32-36); Mean Corpuscular Volume 94.6 fL (80-100); Mean Platelet Volume 10.3 fL (7.4-10.4); Platelet Count 320 K/uL (130-400); RDW Coefficient of Variation 13.6 % (11.5-14.5); RDW Standard Deviation 47.1 fL (36.4-46.3); Red Blood Count 3.88 M/uL (4.2-5.4); White Blood Count 6.12 K/uL (4.8-10.8)
[2019-03-30] MEDS: ESCITALOPRAM OXALATE 20 MG TAB PO SCH (08:32)
[2019-03-30] MEDS: NICOTINE 21 MG/24 HR TDSY TD SCH (08:32)
[2019-03-30] MEDS: lisinopriL 20 MG TAB PO SCH (08:32)
[2019-03-30] MEDS: ACETAMINOPHEN 1,000 MG/100 ML VIAL IV PRN (08:43)
[2019-03-30] MEDS ORDERED: ENOXAPARIN INJ 40 MG/0.4 ML SYR SQ SCH (09:00)
--- NOTE | 2019-03-30 11:47 | Hospitalist Progress Note ---
Date of Service March 30, 2019 Assessment & Plan (1) Sepsis: Meet sepsis criteria on admission with tachycardia, elevated WBC and diverticulitis on CT scan Received Levaquin and flagyl IV in the ER WBC 17K on admission WBC back to normal UA positive for nitrate and trace leukocytes Urine cx and blood cx no growth Currently on IV Zosyn Case discussed with surgery and ok to start on clear liquid diet Clinically improves (2) Diverticulitis: (3) Abdominal pain: Present on admission with worsening abdominal pain associated with bloating Failed outpatient treatment with Augmentin CT abd showed significant interval worsening of inflammatory changes in the superior pelvis, which appear to emanate from small bowel rather than the sigmoid colon. Numerous foci of extraluminal gas primarily in the superior pelvis though to a lesser extent in the upper abdomen consistent with perforated hollow viscus. Several developing abscesses are evident in the superior pelvis measuring up to 3.5 cm Surgery on board recommended conservative management with IV Zosyn and bowel rest Continue to keep NPO with ice and chips Continue pain control and IVF Will need to arrange for outpatient colonoscopy in 6 to 8 weeks GI bleed Mostly related to diverticulitis Hgb stable D/C lovenox subq Will need outpatient colonoscopy Continue moitor MARISEL Possible related to poor oral intake Creatinine on admission 1.3 Creatinine improves to 0.8 after IVF Will continue to hold HCTZ Will resume Lisinopril in am Continue monitor BMP HTN BP stable Continue to hold HCTZ Will resume Lisinopril in am DVT px on heparin subq Code Status Full Code Admission and Anticipated Discharge Date Admission Date: March 28, 2019 Subjective Pt was seen and examined Lying in bed with no distress Pt said that she continue to have pain around her lower abdomen She said that she had multiple episodes of bloody stool last night Denies any chest pain, palpitation, dizziness and SOB Physical Exam Physical Exam: General- No acute distress Head- atraumatic Eyes- PERRL, EOMI, ENT- oropharynx clear Neck- supple, no JVD Lungs- clear to auscultation Heart- regular rhythm; no murmur Abdomen- +tenderness, +mild distended Extremities- no calf tenderness Neuro- alert, oriented x 3; PERRL, EOMI; no facial palsy; no dysarthria Skin- warm & dry Results & Data ([facility]) Vital Signs (Past 12 Hours) Vital Signs Temp Pulse Pulse Resp BP BP Pulse Ox 03/30/19 11:16 36.7 C 81 18 133/87 95 03/30/19 07:07 36.5 C 81 20 126/87 95 03/30/19 07:00 83 03/30/19 04:00 36.6 C 81 18 111/78 96 03/30/19 00:00 94 H 03/29/19 23:48 36.7 C 82 20 114/77 96 (1) Abdominal pain Abdominal location: generalized Qualified Code(s): R10.84 - Generalized abdominal pain
--- NOTE | 2019-03-30 13:26 | Surgery Progress Note ---
Date of Service March 30, 2019 Assessment & Plan (1) Diverticulitis: Diverticulitis with abscess formation Subjectively improved Continue to monitor H&H and hematochezia No evidence of diffuse peritonitis We will continue with conservative measures for now Subjective Feels better today Having less pain Having bowel movements but did have some hematochezia. It was a small amount each time Denies nausea and vomiting Tolerating clear liquid diet Physical Exam Physical Exam: Gastrointestinal (Abdomen): Inspection/Auscultation: abdomen not distended Percussion/Palpation: + abdomen tender (Less tender) and abdomen soft; no abdominal mass Results & Data Vital Signs (Past 12 Hours) Vital Signs Temp Pulse Pulse Resp BP BP Pulse Ox 03/30/19 11:16 36.7 C 81 18 133/87 95 03/30/19 07:07 36.5 C 81 20 126/87 95 03/30/19 07:00 83 03/30/19 04:00 36.6 C 81 18 111/78 96 Laboratory Results 03/30/19 Range/Units 06:40 WBC 6.12 (4.8-10.8) K/uL RBC 3.88 L (4.2-5.4) M/uL Hgb 12.3 (12.0-16.0) g/dL Hct 36.7 L (37-47) % MCV 94.6 (80-100) fL MCH 31.7 (25-34) pg MCHC 33.5 (32-36) g/dL RDW Std Deviation 47.1 H (36.4-46.3) fL RDW Coeff of Sean 13.6 (11.5-14.5) % Plt Count 320 (130-400) K/uL MPV 10.3 (7.4-10.4) fL
[2019-03-30] MEDS: TRAZODONE HCL 100 MG TAB PO SCH (22:31)
[2019-03-31] MEDS: PIPERACILLIN/TAZOBACTAM 4.5 GM/120 ML BAG IV SCH (02:31)
[2019-03-31] MEDS: TRAMADOL HCL 50 MG TABLET PO PRN (03:10)
--- NOTE | 2019-03-31 06:45 | Surgery Progress Note ---
Date of Service March 31, 2019 Assessment & Plan (1) Diverticulitis: recheck CT- assess progress/ worsening/ abscess Picc line for possible home atbx, may need Tpn also ask ID to see re atbx choices suspect she will require IV atbx 2-3 weeks Subjective no distress pos bm- mild pain ramon clear liquids Physical Exam Constitutional: well nourished; no acute distress Eyes: + anicteric sclerae Respiratory: normal respiratory effort; no respiratory distress Cardiovascular: Rate/Rhythm: regular rhythm Gastrointestinal (Abdomen): Percussion/Palpation: abdomen soft mild lower abd tenderness Skin: no rashes, warm and dry Neurologic: awake Psychiatric: Orientation: alert Results & Data Vital Signs (Past 12 Hours) Vital Signs Temp Pulse Pulse Resp BP Pulse Ox 03/31/19 03:40 36.6 C 84 20 136/102 H 96 03/30/19 23:57 36.5 C 79 20 115/79 95 03/30/19 22:20 82 03/30/19 19:36 36.7 C 85 20 118/83 95 PG Care Time/CCT Total # of Minutes Spent Total Time Spent with Patient: Total time spent is greater than 50% in coordination of care (as documented) at patient's floor/unit and/or counseling patient: Coding Level of Care Code 60633 Inpt Consult Level 4 Diagnoses Diverticulitis K57.92
[2019-03-31] MEDS: HYDROmorphone INJ 0.5 MG/0.5 ML SYR IV PRN (07:19)
[2019-03-31] MEDS: NICOTINE 21 MG/24 HR TDSY TD SCH (08:23)
[2019-03-31] MEDS: lisinopriL 20 MG TAB PO SCH (08:24)
[2019-03-31] MEDS: ESCITALOPRAM OXALATE 20 MG TAB PO SCH (08:24)
[2019-03-31] MEDS ORDERED: IOVERSOL 100ml IV PRN (09:08)
--- NOTE | 2019-03-31 09:41 | Infectious Disease Consult ---
Date of Consultation March 31, 2019 Assessment & Plan (1) Diverticulitis of intestine with perforation and abscess: will change to ertapenem as this is once daily, blood cultures negative, for picc line. will need weekly cbc, cmp, esr while on IV abx, would give min 21 days with repeat abd imaging prior to d/c to assess for resolution. If abscess remains, many need IR drainage. History of Present Illness Attending Physician: Alexander Juan MD pt admitted with 5 days abd pain, ct initially 03/25 diverticulitis, was placed on augmentin and d/c home, pain continued, returned to ER - repeat ct showed worsening inflammation, multiple abscesses, 3.5cm, and peritonitis. surgery evaluated, npo, IV abx with plans for conservative management and serial ct. she is now on clears, tolerating well. afebrile. wbc decreased from [address] pending. overall feeling better but still with cramping, on zosyn and tolerating well. IV team present during my exam for picc placement. no f/c. no cp, sob, cough, no n/v. no gu symptoms. blood cultures negative. ID consulted for IV abx upond d/c home. Allergies Allergy/AdvReac Type Severity Reaction Status Date / Time apple Allergy Hives Verified 03/28/19 01:58 Home Medications Home Medications Medication Instructions Recorded Confirmed Type lisinopril-hydrochlorothiazide 1 tab PO QAM 02/04/18 03/27/19 History escitalopram oxalate 20 mg PO QAM 03/07/19 03/27/19 History trazodone 100 mg PO HS 03/07/19 03/27/19 History amoxicillin-pot clavulanate 1 tab PO BID #14 tab 03/25/19 03/27/19 Rx [Augmentin] naproxen 0 mg PO BID PRN 03/25/19 03/27/19 History Patient History Medical History No acute medical problems Surgical History No pertinent past surgical history Family History Other No pertinent family history in first degree relatives Social History Preferred Language: Pakistani Communication Ability: Effective Beliefs That Will Affect Care: None Current Living Situation: Parent Other Information That Helps Us Care for You: No Feels Safe at Home: Yes Smoking Status: Current every day smoker Tobacco Type: cigarettes ; Cigarettes Per Day: 10-20 ; Do You Dip or Chew Tobacco: No ; Second Hand Exposure: No ; Tobacco Cessation Education Requested by Patient: No Hx Alcohol Use: Yes Hx Substance Use: No Review of Systems Review of Systems: All systems reviewed & are unremarkable except as noted in HPI & below Physical Exam Constitutional: WD/WN, vitals as above Eyes: PERRL, conjunctivae normal, anicteric sclerae ENMT: external ear and nose normal, oropharynx normal Neck: normal visual inspection Respiratory: normal respiratory effort, lungs clear to auscultation Cardiovascular: RRR, no murmur, no edema Gastrointestinal (Abdomen): normal bowel sounds, soft, nontender, no hepatosplenomegaly Musculoskeletal: no cyanosis or clubbing, extremities motor strength 5/5 Skin: no rashes, warm and dry Psychiatric: A+Ox3, euthymic affect Results & Data ([facility]) Vital Signs (Past 12 Hours) Vital Signs Temp Pulse Pulse Resp BP Pulse Ox 03/31/19 07:15 36.4 C L 86 18 146/89 H 96 03/31/19 07:05 77 03/31/19 03:40 36.6 C 84 20 136/102 H 96 03/30/19 23:57 36.5 C 79 20 115/79 95 03/30/19 22:20 82 Laboratory Results Microbiology 03/28/19 00:37 Urine,Clean Catch Urine Culture - Final No growth - less than 1,000 colonies/mL. 03/28/19 01:33 Blood Aerobic Blood Culture - Preliminary No growth in Aerobic bottle after 48 hours. 03/28/19 01:33 Blood Anaerobic Blood Culture - Preliminary No growth in Anaerobic bottle after 48 hours. 03/28/19 01:42 Blood Aerobic Blood Culture - Preliminary No growth in Aerobic bottle after 48 hours. 03/28/19 01:42 Blood Anaerobic Blood Culture - Preliminary No growth in Anaerobic bottle after 48 hours. PG Care Time/CCT Total # of Minutes Spent Total Time Spent with Patient: Total time spent is greater than 50% in coordination of care (as documented) at patient's floor/unit and/or counseling patient: Coding Level of Care Code 61620 Inpt Consult Level 4 Diagnoses Diverticulitis of intestine with perforation and abscess K57.80 Diverticulitis bleeding: without bleeding Diverticulitis site: unspecified part of intestinal tract (1) Diverticulitis of intestine with perforation and abscess Diverticulitis bleeding: without bleeding Diverticulitis site: unspecified part of intestinal tract Qualified Code(s): K57.80 - Diverticulitis of intestine, part unspecified, with perforation and abscess without bleeding
--- NOTE | 2019-03-31 09:54 | CT Scan Report ---
ABDOMEN AND PELVIS CT WITH IV AND ORAL CONTRAST CT DOSE: 1492.26 mGy.cm HISTORY: Worsening generalized abdominal pain. h/o diverticulitis TECHNIQUE: Multiaxial CT images of the abdomen and pelvis were performed following the use of intrave nous and oral contrast. A dose lowering technique was utilized adhering to the principles of ALARA. COMPARISON STUDY: Abdomen and pelvis CT 03/28/2019. FINDINGS: There are small bilateral pleural effusions. Patchy bibasilar linear densities are also not ed. This has progressed in the interval. This could represent atelectasis or pneumonia. The gallbladd er is contracted but likely unremarkable. The liver, spleen, adrenal glands, and pancreas are unremar kable. No hydronephrosis. The left kidney enhances normally. Subcentimeter hypodense lesion within th e lower pole the right kidney remains stable and is technically too small to characterize. Statistica lly this represents a small cyst. Questionable thickening involving the body of the stomach is likely due to underdistention. The bladder is decompressed. This likely accounts for the bladder wall thick ening. An intrauterine device appears in good position. Lobular appearance to the posterior uterine w all likely represents a fibroid. This measures 4 cm. This remains unchanged. Multiple colonic diverti cula. Normal appendix. Inflammatory change within the right lower quadrant with mild thickening of th e adjacent ileal loops has slightly progressed. There are few focal areas of extraluminal gas adjacen t to the bowel loops with the largest on image 371 measuring 3.3 cm. There is an additional focal air -fluid level anterior to the bladder measuring 3.6 cm. Normal appendix. Small amount of ascites is si milar to the prior study. This demonstrates mild peritoneal enhancement suggesting associated periton itis. A few prominent gas-filled loops of mid small bowel suggesting a partial small bowel obstructio n with the transition point located at the thickened ileal loops. IMPRESSION: 1. Inflammatory change within the right lower quadrant with mild thickening of the adjacent ileal loo ps has slightly progressed. There are few focal areas of extraluminal gas/fluid adjacent to the bowel loops consistent with contained perforation/abscesses which have also slightly increased in size. Th alma findings favor a primary abnormality at the small bowel and could represent a perforated Meckel's diverticulitis or perforated small bowel diverticulitis. A localized enteritis or inflammatory bowel disease could also have a similar appearance. Surgical consultation recommended. 2. Slight progression of the associated peritonitis. 3. A few prominent gas-filled loops of mid small bowel suggesting a partial small bowel obstruction w ith the transition point located at the thickened ileal loops. 4. Additional findings as described above. ACT 112: Negative or not required by law. Electronically signed by: Andrew Colón M.D. 03/31/2019 9:53 AM
[2019-03-31] MEDS: ERTAPENEM SODIUM 1,000 MG in SODIUM CHLORIDE 0.9% 50 ML IV SCH (10:51)
[2019-03-31] MEDS ORDERED: ONDANSETRON INJ 2 MG/ML 2 ML VIAL ONE ×2 (11:13→13:16)
[2019-03-31] MEDS ORDERED: GLYCOPYRROLATE 0.2 MG/ML VIAL ONE ×2 (11:13→13:52)
[2019-03-31] MEDS ORDERED: NEOSTIGMINE METHYLSULFATE 5 MG/5 ML SYR ONE (11:13)
[2019-03-31] MEDS ORDERED: MIDAZOLAM HCL 1 MG/ML 2ML VIAL ONE (11:13)
[2019-03-31] MEDS ORDERED: fentaNYL citrate 100 MCG/2 ML VIAL ONE (11:13)
[2019-03-31] MEDS ORDERED: DEXAMETHASONE SOD INJ 4 MG/ML VIAL ONE (11:13)
[2019-03-31] MEDS ORDERED: LIDOCAINE HCL 2% 2 ML VIAL/AMP(20MG/ML) INFIL ONE (11:13)
[2019-03-31] MEDS ORDERED: PROPOFOL IV EMULSION 10 MG/ML 20 ML VIAL IV ONE (11:13)
[2019-03-31] MEDS ORDERED: ROCURONIUM BROMIDE 10 MG/ML 5 ML VIAL ONE (11:20)
[2019-03-31] MEDS ORDERED: SUCCINYLCHOLINE CHLORIDE 20 MG/ML 10 ML VIAL ONE (11:20)
[2019-03-31] MEDS ORDERED: LARYING-O-JET KIT (LTA) ONE (11:20)
--- NOTE | 2019-03-31 11:22 | Hospitalist Progress Note ---
Date of Service March 31, 2019 Assessment & Plan (1) Sepsis: Meet sepsis criteria on admission with tachycardia, elevated WBC and diverticulitis on CT scan Received Levaquin and flagyl IV in the ER WBC 17K on admission WBC back to normal UA positive for nitrate and trace leukocytes Urine cx and blood cx no growth IV Zosyn changed to Ertapenem by ID Will need a total of 21 days course Will need weekly cbc, cmp, esr while on IV abx, Will keep NPO for now (2) Diverticulitis: (3) Abdominal pain: Present on admission with worsening abdominal pain associated with bloating Failed outpatient treatment with Augmentin CT abd showed significant interval worsening of inflammatory changes in the superior pelvis, which appear to emanate from small bowel rather than the sigmoid colon. Numerous foci of extraluminal gas primarily in the superior pelvis though to a lesser extent in the upper abdomen consistent with perforated hollow viscus. Several developing abscesses are evident in the superior pelvis measuring up to 3.[address] abd/pelvis done on 03/31 showed Inflammatory change within the right lower quadrant with mild thickening of the adjacent ileal loops has slightly progressed. There are few focal areas of extraluminal gas/fluid adjacent to the bowel loops consistent with contained perforation/abscesses which have also slightly increased in size. These findings favor a primary abnormality at the small bowel and could represent a perforated Meckel's diverticulitis or perforated small bowel diverticulitis. A localized enteritis or inflammatory bowel disease could also have a similar appearance. Slight progression of the associated peritonitis.A few prominent gas-filled loops of mid small bowel suggesting a partial small bowel obstruction with the transition point located at the thickened ileal loops. Case discussed with surgery who is taking her to OR now for possible abd exploration or bowel resection since CT abd/pelvis worsening IV Zosyn change to IV Ertapenem by ID, will need a total of 21 days course Will need to arrange for outpatient colonoscopy in 6 to 8 weeks Will monitor on med/surge floor GI bleed Mostly related to diverticulitis Hgb stable D/C lovenox subq Will need outpatient colonoscopy Continue monitor closely MARISEL Possible related to poor oral intake Creatinine on admission 1.3 Creatinine improves to 0.8 after IVF Will continue to hold HCTZ On Lisinopril Continue monitor BMP Resolved HTN BP stable Continue to hold HCTZ On Lisinopril in am DVT px heparin subq was discontinue for blood in stool Will add SCDs/Ambulate Code Status Full Code Admission and Anticipated Discharge Date Admission Date: March 28, 2019 Subjective Pt was seen and examined Lying in bed with no distress Pt has been walking in the hallway She said that she continues to have lower abdominal discomfort She said that pain is less when compared to the initial pain on admission Denies any chest pain, palpitation, dizziness and SOB Physical Exam Physical Exam: General- No acute distress Head- atraumatic Eyes- PERRL, EOMI, ENT- oropharynx clear Neck- supple, no JVD Lungs- clear to auscultation Heart- regular rhythm; no murmur Abdomen- +tenderness, +BS Extremities- no calf tenderness Neuro- alert, oriented x 3; PERRL, EOMI; no facial palsy; no dysarthria Skin- warm & dry Results & Data ([facility]) Vital Signs (Past 12 Hours) Vital Signs Temp Pulse Pulse Resp BP Pulse Ox 03/31/19 07:15 36.4 C L 86 18 146/89 H 96 03/31/19 07:05 77 03/31/19 03:40 36.6 C 84 20 136/102 H 96 03/30/19 23:57 36.5 C 79 20 115/79 95 (1) Abdominal pain Abdominal location: generalized Qualified Code(s): R10.84 - Generalized abdominal pain
[2019-03-31] MEDS ORDERED: ATROPINE SULFATE 0.1 MG/ML 10ML SYR IV PRN (11:23)
[2019-03-31] MEDS ORDERED: ONDANSETRON INJ 2 MG/ML 2 ML VIAL IV PRN ×2 (11:23→14:03)
[2019-03-31] MEDS ORDERED: ePHEDrine sulfate 50 MG/ML AMP IV PRN (11:23)
[2019-03-31] MEDS ORDERED: PROMETHAZINE HCL 6.25 MG in SODIUM CHLORIDE 0.9% 50 ML IV PRN (11:23)
--- NOTE | 2019-03-31 11:37 | Anesthesiology Consultation ---
Date of Service March 31, 2019 Obesity Smoker perforated diverticulitis Probable YELITZA Assessment & Plan (1) Encounter for pre-operative examination: Chart Review Chart Review: Acceptable Risk for Surgery and Patient NOT seen in Pre Admission Testing Consults Requested none ASA [id number] Proposed Anesthesia Anesthesia Type: General Regional Regional Laterality: Bilateral Site: Transversus Abdominal Plane Anesthesia Line Insertion: other (NG Tube prior to induction) Risk / Benefits Reviewed With: PT / POA / Parent / Guardian, Accepts Plan and Informed Consent Obtained History Surgery Operation Date: 03/31/19 09:25 Proposed Procedures p Exploratory Laparotoym, Possible Bowel Resection, Drainage of Abscess - Julian Cruz MD, FACS Height/Weight Height: 5 ft 9 in Weight: 116.1 kg Allergies Allergy/AdvReac Type Severity Reaction Status Date / Time apple Allergy Hives Verified 03/28/19 01:58 Medications Home Medications Medication Instructions Recorded Confirmed Last Taken lisinopril-hydrochlorothiazide 1 tab PO QAM 02/04/18 03/27/19 03/25/19 escitalopram oxalate 20 mg PO QAM 03/07/19 03/27/19 03/25/19 trazodone 100 mg PO HS 03/07/19 03/27/19 03/24/19 amoxicillin-pot clavulanate 1 tab PO BID #14 tab 03/25/19 03/27/19 Unknown [Augmentin] naproxen 0 mg PO BID PRN 03/25/19 03/27/19 03/25/19 09:00 1 tablet Active Medications Generic Name Dose Route Start Last Admin Trade Name Freq PRN Reason Stop Dose Admin Albuterol 3 ml 03/28/19 08:55 03/29/19 14:09 Duoneb NEB 04/27/19 10:59 3 ml Q4R PRN Administration SOB/Wheezing Escitalopram Oxalate 20 mg 03/28/19 09:00 03/31/19 08:24 Lexapro Tab PO 04/27/19 08:59 20 mg QAM CAPRICE Administration Hydromorphone HCl 0.5 mg 03/28/19 05:41 03/31/19 07:19 Dilaudid IV 04/11/19 05:40 0.5 mg Q3HWA PRN Administration Pain Promethazine HCl 12.5 mg/ 50.5 mls @ 202 mls/hr 03/28/19 03:45 03/28/19 13:14 Sodium Chloride IV 04/27/19 03:44 Infused Q6H PRN Infusion Nausea And Vomiting Ertapenem 1,000 mg/ Sodium 60 mls @ 100 mls/hr 03/31/19 10:00 03/31/19 10:51 Chloride IV 04/10/19 09:59 100 mls/hr Q24H CAPRICE Administration Ioversol 94 ml 03/31/19 09:08 03/31/19 09:08 Optiray 320 100ml IV 04/04/19 09:07 94 ml ONCE PRN Administration Interaction Checking Lisinopril 20 mg 03/29/19 09:00 03/31/19 08:24 Zestril PO 04/28/19 08:59 20 mg QAM CAPRICE Administration Miscellaneous 1 ea 03/29/19 08:59 03/31/19 08:24 Remove Nicoderm Patch N/A 04/28/19 08:58 1 ea [id number] CAPRICE Administration Nicotine 21 mg 03/28/19 04:30 03/31/19 08:23 Nicoderm Cq TD 04/27/19 04:29 21 mg QAM CAPRICE Administration Tramadol HCl 25 - 50 mg 03/29/19 21:02 03/31/19 03:10 Ultram PO 04/28/19 21:01 50 mg Q4H PRN Administration Pain Trazodone HCl 100 mg 03/28/19 21:00 03/30/19 22:31 Desyrel PO 04/27/19 20:59 100 mg HS CAPRICE Administration NPO Date Last Intake of Fluids: 04/01/19 Time Last Intake of Fluids: 10:00 Last Intake of Fluids Comment: sips of water Date Last Intake of Solids: 03/31/19 Time Last Intake of Solids: 17:00 Past Medical History Medical History No acute medical problems Exercise / Class Metabolic Activity II 4-5 Yardwork/Stairs/Walk up hill Past Family History Family History Other No pertinent family history in first degree relatives Past Surgical History Surgical History No pertinent past surgical history Past Anesthesia History No Hx of Anesthesia Complications and No Family Hx of Anesthesia Complications History of PONV No Hx of PONV and No Hx of Motion Sickness Social History Smoking Status: Current every day smoker tobacco type: cigarettes Smoking cigarettes per day: 10-20 Do You Dip or Chew Tobacco: No Hx Alcohol Use: Yes alcohol intake frequency: holidays/special occasions only Hx Substance Use: No Physical Exam Vital Signs Last Vital Signs Temp 36.7 C 03/31/19 11:28 Pulse 79 03/31/19 11:28 Resp 20 03/31/19 11:28 BP 131/90 03/31/19 11:28 Pulse Ox 97 03/31/19 11:28 Constitutional + obese ENMT Mouth: no dentition abnormality Thyromental Distance: > or= 3.5 Finger Breadths Mallampati Class: II Neck normal visual inspection Respiratory normal respiratory effort Auscultation: lungs clear to auscultation bilaterally Cardiovascular Rate/Rhythm: regular rate and regular rhythm Psychiatric Orientation: alert Testing Laboratory Results 03/30/19 06:40 03/29/19 07:42 PT 11.0 Seconds (9.0-12.0) 03/27/19 22:38 INR 1.1 (0.9-1.1) 03/27/19 22:38 APTT 28.4 Seconds (21.0-31.0) 03/27/19 22:38 Hemoglobin A1c 6.2 % (4.5-5.6) H 03/27/19 22:38 Urine Color Dark Yellow 03/28/19 00:37 Urine Appearance Cloudy (Clear) A 03/28/19 00:37 Urine pH 5.0 (4.5-7.5) 03/28/19 00:37 Ur Specific [place] > 1.045 (1.000-1.030) H 03/28/19 00:37 Urine Protein 1+ (Negative) H 03/28/19 00:37 Urine Glucose (UA) Negative (Negative) 03/28/19 00:37 Urine Ketones Negative (Negative) 03/28/19 00:37 Urine Nitrite Positive (Negative) A 03/28/19 00:37 Ur Leukocyte Esterase Trace (Negative) H 03/28/19 00:37 Urine WBC (Auto) 10-30 /hpf (0-5) H 03/28/19 00:37 Urine RBC (Auto) 0-4 /hpf (0-4) 03/28/19 00:37 U Hyaline Cast (Auto) >30 /lpf (0-5) H 03/28/19 00:37 U Epithel Cells (Auto) >30 /lpf (0-5) H 03/28/19 00:37 Urine Bacteria (Auto) Negative (Negative) 03/28/19 00:37 03/28/19 00:37 Urine Culture - Final Urine,Clean Catch No growth - less than 1,000 colonies/mL. 03/28/19 01:33 Aerobic Blood Culture - Preliminary Blood No growth in Aerobic bottle after 48 hours. Anaerobic Blood Culture - Preliminary No growth in Anaerobic bottle after 48 hours. 03/28/19 01:42 Aerobic Blood Culture - Preliminary Blood No growth in Aerobic bottle after 48 hours. Anaerobic Blood Culture - Preliminary No growth in Anaerobic bottle after 48 hours. Electrocardiogram Date: 03/27/19 Findings: + NSR @ Chest X-Ray Date: 03/27/19 Findings: + NAD
[2019-03-31] MEDS ORDERED: BUPIVACAINE 0.5 % 5 MG/1 ML PF 10ML VIAL ONE ×2 (11:56→12:02)
[2019-03-31] MEDS ORDERED: HYDROmorphone INJ 2 MG/ML SYR/VIAL ONE (12:22)
[2019-03-31] MEDS ORDERED: ACETAMINOPHEN 1,000 MG/100 ML VIAL IV STA (14:00)
--- NOTE | 2019-03-31 14:00 | Post Operative Brief Note ---
PG Immediate Post Op with CF Date of Surgery March 31, 2019 Pre & Post Diagnosis Operation Date: 03/31/19 09:25 Pre-Op Diagnosis: small bowel perforation Post-Op Diagnosis: same w/ pelvic abscess I identified the patient and participated in the time-out.: Yes Procedure Operation Date: 03/31/19 09:25 Actual Procedures p Exploratory laparotomy, Drainage of Abdominal Abscesses, Open Appendectomy, Small Bowel Resection(Not Applicable) - Julian Cruz MD, FACS abdominal washout Surgeon Julian Cruz MD, FACS Pipe Line Gauger Rocael Monge Estimated Blood Loss 30 Findings Consistent with Post-Op Diagnosis Specimens Specimen Description: Cultures 1. Abdominal Abscess #1 2. Abdominal Abscess #2 Permanent A. Omentum B. Appendix C. Ileum Drains [place] Catheter, Moisés-López Drain (19fr round ) and [place] Drain
[2019-03-31] MEDS ORDERED: HYDROmorphone INJ 2 MG/ML SYR/VIAL IV PRN (14:03)
[2019-03-31] MEDS ORDERED: PROMETHAZINE HCL 25 MG in SODIUM CHLORIDE 0.9% 50 ML IV PRN (14:03)
[2019-03-31] MEDS ORDERED: ACETAMINOPHEN 1000 MG/100 ML IV IV ONE (14:17)
[2019-03-31] MEDS: fentaNYL citrate 100 MCG/2 ML VIAL IV PRN ×4 (14:19→14:39)
[2019-03-31] MEDS: HYDROmorphone INJ 2 MG/ML SYR/VIAL IV PRN ×4 (14:47→15:05)
[2019-03-31] MEDS ORDERED: NALOXONE HCL 0.4 MG/1 ML VIAL/CARP IV PRN (14:59)
--- NOTE | 2019-03-31 15:10 | Anesthesiology Progress Note ---
Date of Service March 31, 2019 Anesthesia Post Procedure Vital Signs Vital Signs: Temp Pulse Pulse Pulse Resp BP Pulse Ox 03/31/19 15:00 84 20 145/85 H 98 03/31/19 14:50 83 21 130/79 98 03/31/19 14:40 85 21 129/90 98 03/31/19 14:30 81 20 133/82 99 03/31/19 14:20 77 13 133/77 100 03/31/19 14:10 36.3 C L 84 23 127/83 100 03/31/19 11:28 36.7 C 79 20 131/90 97 03/31/19 07:15 36.4 C L 86 18 146/89 H 96 03/31/19 07:05 77 03/31/19 03:40 36.6 C 84 20 136/102 H 96 03/30/19 23:57 36.5 C 79 20 115/79 95 03/30/19 22:20 82 03/30/19 19:36 36.7 C 85 20 118/83 95 03/30/19 15:26 36.6 C 80 18 122/82 96 Pain Intensity Abdomen: Pain Intensity: 9 Transfer of Care Handoff Completed per policy Notes Mental Status: alert / awake / arousable Patient Amnestic to Procedure: Yes Nausea / Vomiting: adequately controlled Pain: adequately controlled Airway Patency, RR, SpO2: stable & adequate BP & HR: stable & adequate Hydration State: stable & adequate Anesthetic Complications: no major complications apparent
[2019-03-31] MEDS: HYDROmorphone PCA 30 MG/30 ML IV PRN (16:27)
--- NOTE | 2019-03-31 16:34 | Operative Report ---
DATE OF OPERATION: 03/31/2019 NAME OF OPERATION: Laparotomy, drainage of pelvic abscesses, small bowel resection, appendectomy, abdominal washout. PREOPERATIVE DIAGNOSIS: Small bowel perforation with abscess. POSTOPERATIVE DIAGNOSIS: Same. STAFF SURGEON: Julian Cruz M.D. TELEVISION DIRECTOR: Sydnee Monge PA-C. ANESTHESIA: General. DESCRIPTION OF PROCEDURE: The patient was brought in the operating room and placed on the operating table in supine position. A [place] catheter and nasogastric tube were in place. Pneumatic stockings were placed. Her abdomen was prepped and draped in usual fashion. Lower midline incision was made after appropriate local blockage by the anesthesiologist, carrying dissection down into the abdomen encountering what appeared to be serous ascites. On exploration the omentum and small bowel were very indurated and adherent within the pelvis. The omentum, with some difficulty, was dissected away from the small bowel, encountering at least 2 areas of abscess formation and exudate. The part of the omentum was excised using the LigaSure and 2-0 silk sutures. At this point the small bowel was mobilized, a portion of the ileum was relatively diseased from the abscesses. I could not discern a specific perforation, but the area was over approximately 12 inches. It appeared that the sigmoid colon was intact and there was no other evidence of other perforation. At this point, I did feel that appendectomy would be appropriate. It was retrocecal and adherent. It was removed transecting the base, oversewing the base using 0 chromic suture. The mesocolon was transected and oversewn using 0 chromic suture. The appendix was sent for routine pathology. At this point, a small bowel resection was performed using a SURAJ 60 stapler, transecting the bowel and then the mesentery was transected and ligated using LigaSure and 0 chromic catgut suture as well as some 2-0 silk suture. At this point, the ends of the small bowel were oversewn using 3-0 silk suture and then a vzow-ts-[id number] anastomosis performed using SURAJ 60 stapler. The enteric defect was closed in 2 layers, 2-0 chromic for the mucosal layer and then 3-0 silk for the seromuscular layer. Mesentery was closed using 0 chromic suture. Abdomen was irrigated with saline and antibiotic solution. It appeared that the purulent fluid was localized to the pelvis. A 19 round Moisés-López drain placed down into the pelvis, secured to skin using 3-0 nylon suture. The posterior fascia and peritoneum reapproximated using running #1 chromic suture. Anterior fascia reapproximated using both running and interrupted #1 PDS suture. A 5/8 inch Gore drain placed in the subcutaneous space and then the skin reapproximated using yasmine. The Gore drain was secured using 4-0 nylon suture. Half inch Nu Gauze was placed between the yasmine into the subcutaneous tissue. My membership assistant helped with prepping, draping, removal, drainage of the abscess, the small bowel resection and closure of the wound. Dressing applied and patient transferred to recovery room in stable condition. I attest to the content of the Intraoperative Record and any orders documented therein. Any exception s are noted below.
[2019-03-31] MEDS: NSS + 20MEQ KCL 20 MEQ/1,000 ML BAG IV SCH (17:01)
[2019-03-31] MEDS: SODIUM CHLORIDE 0.9% 1000ML 1,000 ML IV SCH (17:16)
[2019-03-31] MEDS ORDERED: Nursing to Pharmacy Communication ONE (18:44)
[2019-03-31] MEDS: LORazepam 1 MG/2 ML VIAL IV PRN (19:17)
[2019-03-31] MEDS: ACETAMINOPHEN 1,000 MG/100 ML VIAL IV PRN (22:36)
[2019-04-01] MEDS: NSS + 20MEQ KCL 20 MEQ/1,000 ML BAG IV SCH ×3 (03:43→14:14)
[2019-04-01 07:10] LABS: Basophils # (auto) 0.03 K/uL (0-0.2); Basophils % (auto) 0.2 %; Eosinophils # (auto) 0.05 K/uL (0-0.5); Eosinophils % (auto) 0.4 %; Hematocrit (blood only) 38.1 % (37-47); Hemoglobin 13.1 g/dL (12.0-16.0); Immature Granulocytes # (auto) 0.19 K/uL (0.00-0.02); Immature Granulocytes % (auto) 1.4 %; Lymphocytes # (auto) 1.45 K/uL (1.2-3.4); Lymphocytes % (auto) 10.6 %; Mean Corpuscular Hemoglobin 32.2 pg (25-34); Mean Corpuscular Hgb Conc 34.4 g/dL (32-36); Mean Corpuscular Volume 93.6 fL (80-100); Mean Platelet Volume 9.9 fL (7.4-10.4); Monocytes # (auto) 0.89 K/uL (0.11-0.59); Monocytes % (auto) 6.5 %; Neutrophils # (auto) 11.11 K/uL (1.4-6.5); Neutrophils % (auto) 80.9 %; Platelet Count 346 K/uL (130-400); RDW Coefficient of Variation 13.1 % (11.5-14.5); RDW Standard Deviation 45.4 fL (36.4-46.3); Red Blood Count 4.07 M/uL (4.2-5.4); White Blood Count 13.72 K/uL (4.8-10.8)
[2019-04-01] MEDS: ACETAMINOPHEN 1,000 MG/100 ML VIAL IV PRN (07:17)
--- NOTE | 2019-04-01 07:37 | Surgery Progress Note ---
Date of Service April 01, 2019 Assessment & Plan (1) Perforated abdominal viscus: pt had perforated small bowel- unknown etiology s/p sm bowel resection expect poor GI function for several days leave NG, loera, try to ambulate Tpn ordered, cont IV atbx Results & Data Vital Signs (Past 12 Hours) Vital Signs Temp Pulse Resp BP Pulse Ox 04/01/19 03:46 36.8 C 94 H 16 152/92 H 96 04/01/19 02:16 12 03/31/19 23:05 36.8 C 83 18 130/84 96 03/31/19 21:43 36.6 C 87 13 148/93 H 97 03/31/19 20:32 36.5 C 91 H 11 L 157/84 H 96 PG Care Time/CCT Total # of Minutes Spent Total Time Spent with Patient: Total time spent is greater than 50% in coordination of care (as documented) at patient's floor/unit and/or counseling patient: Coding Level of Care Code None Diagnoses Perforated abdominal viscus R19.8
[2019-04-01 07:44] LABS: Albumin Level 2.2 gm/dl (3.4-5.0); BUN Creatinine Ratio 15.8 (10-20); Calcium 8.2 mg/dl (8.5-10.1); Creatinine Clr Calc Pharmacy 174.9 ml/min; Est GFR (African American) 132.5; Est GFR (Non-African American) 114.3; Potassium 4.1 mmol/L (3.5-5.1)
[2019-04-01 07:48] LABS: Albumin Globulin Ratio 0.6 (0.9-2); Bilirubin,Total 0.2 mg/dl (0.2-1); Globulin 3.8 gm/dl (2.5-4.0)
[2019-04-01] MEDS ORDERED: TPN/PPN CONSULT PHARMACY PRN (07:49)
[2019-04-01] MEDS: HEPARIN SOD 5,000 UNIT/0.5 ML VIAL SQ SCH ×2 (08:31→21:18)
--- NOTE | 2019-04-01 08:36 | Anesthesiology Progress Note ---
Date of Service April 01, 2019 Anesthesia Post Procedure Vital Signs Vital Signs: Temp Pulse Pulse Resp BP Pulse Ox 04/01/19 07:35 36.5 C 98 H 16 150/85 H 96 04/01/19 03:46 36.8 C 94 H 16 152/92 H 96 04/01/19 02:16 12 03/31/19 23:05 36.8 C 83 18 130/84 96 03/31/19 21:43 36.6 C 87 13 148/93 H 97 03/31/19 20:32 36.5 C 91 H 11 L 157/84 H 96 03/31/19 19:33 36.4 C L 83 13 149/90 H 92 03/31/19 18:59 87 16 147/91 H 97 03/31/19 18:19 36.4 C L 87 14 154/68 H 96 03/31/19 17:36 36.4 C L 79 11 L 151/93 H 97 03/31/19 17:03 36.5 C 83 16 146/90 H 97 03/31/19 16:30 86 16 146/91 H 99 03/31/19 16:00 36.4 C L 85 16 135/87 98 03/31/19 15:30 80 13 141/90 H 98 03/31/19 15:20 36.9 C 78 14 139/84 98 03/31/19 15:10 83 13 136/91 98 03/31/19 15:00 84 20 145/85 H 98 03/31/19 14:50 83 21 130/79 98 03/31/19 14:40 85 21 129/90 98 03/31/19 14:30 81 20 133/82 99 03/31/19 14:20 77 13 133/77 100 03/31/19 14:10 36.3 C L 84 23 127/83 100 03/31/19 11:28 36.7 C 79 20 131/90 97 Pain Intensity Abdomen: Pain Intensity: 6 Notes Mental Status: alert / awake / arousable and participated in evaluation Patient Amnestic to Procedure: Yes Nausea / Vomiting: adequately controlled Pain: adequately controlled Airway Patency, RR, SpO2: stable & adequate BP & HR: stable & adequate Hydration State: stable & adequate Anesthetic Complications: no major complications apparent and Pt Satisfied with anesthetic care
[2019-04-01] MEDS: NICOTINE 21 MG/24 HR TDSY TD SCH (09:56)
[2019-04-01] MEDS: ERTAPENEM SODIUM 1,000 MG in SODIUM CHLORIDE 0.9% 50 ML IV SCH (10:21)
--- NOTE | 2019-04-01 11:40 | Pharmacy Report ---
Pharmacy PN Initial Consult - Date of Service April 01, 2019 - Scope Pharmacy has been consulted to manage parenteral nutrition orders and order appropriate labs. As part of the Nutrition Support Team guidelines, pharmacy will work in conjunction with dietary when determining the patients caloric needs. - Subjective The patient is a 44 year old F admitted on 03/28/19 02:27 for SEPSIS. Patient is to receive parenteral nutrition for prolonged NPO / small bowel resection 03/31. - Objective Height: 5 ft 9 in Weight: 116.1 kg Vascular Access:: Midline Intake & Output (Last 24Hrs): Intake & Output 03/30/19 03/31/19 04/01/19 04/02/19 06:59 06:59 06:59 06:59 Intake Total 3381 / 3381 2649 / 2649 3380.000 / 3380.000 825 / 825 Output Total 1850 / 1850 100 / 100 Balance 3381 / 3381 2649 / 2649 1530.000 / 1530.000 725 / 725 Weight 116.1 kg 116.1 kg 116.1 kg Additional Fluid Losses/Gains:: NG tube and surgical drain (LILY) output noted. Possibly at risk for re-feeding. 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 - Plan For day 1 of PN administration, the following will be ordered: Macronutrients Amino acids 75 grams/day Dextrose 100 grams/day Lipids 50 grams/day Micronutrients Combined electrolytes 20 mL - contains 35 mEq Na, 20 meq K, 4.5 mEq Ca, 5 mEq Mg, 35 mEq Cl, 29.5 mEq acetate per 20 mL Sodium phosphate 21 MMol Sodium chloride 60 mEq Potassium acetate 20 mEq Multivitamins 10 mL Trace Elements 10 mL Total volume 2400 mL to be infused over 24 hrs will provide 1140 kcal/day Final osmolarity 648 mOsm/L (maximum for PPN is 900 mOsm/L) Labs to be ordered per PN order protocol Pharmacy will follow and adjust parenteral nutrition orders on a daily basis. Thank you.
[2019-04-01] MEDS: SODIUM CHLORIDE 0.9% 1000ML 1,000 ML IV SCH (12:07)
[2019-04-01] MEDS: LORazepam 1 MG/2 ML VIAL IV PRN ×2 (12:17→23:46)
--- NOTE | 2019-04-01 13:13 | Infectious Disease Progress Nt ---
Date of Service April 01, 2019 Assessment & Plan (1) Diverticulitis of intestine with perforation and abscess: continue ertapenem as this is once daily, blood cultures negative, for picc line. will need weekly cbc, cmp, esr while on IV abx, follow OR cultures Admission and Anticipated Discharge Date Admission Date: March 28, [address] yesterday with worsening findings, taken to OR found 2 abscesses, drained, cultures pending, perforation small bowel, s/p repair. pt having pain on my exam, blood tester pump helping, no f/c. bloodcultures remain negative, afebrile overnight, wbc [address] tolerating abx. Review of Systems Review of Systems: All systems reviewed & are unremarkable except as noted in HPI & below Physical Exam Constitutional: WD/WN, vitals as above Eyes: PERRL, conjunctivae normal, anicteric sclerae ENMT: external ear and nose normal, oropharynx normal Neck: normal visual inspection Respiratory: normal respiratory effort, lungs clear to auscultation Cardiovascular: RRR, no murmur, no edema Gastrointestinal (Abdomen): normal bowel sounds, soft, nontender, no hepatosplenomegaly Inspection/Auscultation: + abdominal surgical incision and + abdominal surgical drain present Percussion/Palpation: + abdomen tender and abdomen soft Musculoskeletal: no cyanosis or clubbing, extremities motor strength 5/5 Skin: no rashes, warm and dry Psychiatric: A+Ox3, euthymic affect Results & Data ([facility]) Vital Signs (Past 12 Hours) Vital Signs Temp Pulse Pulse Resp BP Pulse Ox 04/01/19 11:08 36.5 C 97 H 18 137/84 95 04/01/19 07:35 36.5 C 98 H 16 150/85 H 96 04/01/19 03:46 36.8 C 94 H 16 152/92 H 96 04/01/19 02:16 12 Laboratory Results Microbiology 03/31/19 Unknown Abdomen Gram Stain - Final 03/31/19 Unknown Abdomen Aerobic and Anaerobic Culture - Preliminary Pin-point growth present, reincubating. 03/31/19 Unknown Abdomen Gram Stain - Final 03/31/19 Unknown Abdomen Aerobic and Anaerobic Culture - Preliminary Pin-point growth present, reincubating. 03/28/19 00:37 Urine,Clean Catch Urine Culture - Final No growth - less than 1,000 colonies/mL. 03/28/19 01:33 Blood Aerobic Blood Culture - Preliminary No growth in Aerobic bottle after 48 hours. 03/28/19 01:33 Blood Anaerobic Blood Culture - Preliminary No growth in Anaerobic bottle after 48 hours. 03/28/19 01:42 Blood Aerobic Blood Culture - Preliminary No growth in Aerobic bottle after 48 hours. 03/28/19 01:42 Blood Anaerobic Blood Culture - Preliminary No growth in Anaerobic bottle after 48 hours. PG Care Time/CCT Total # of Minutes Spent Total Time Spent with Patient: Total time spent is greater than 50% in coordination of care (as documented) at patient's floor/unit and/or counseling patient: Coding Level of Care Code 88784 Subseq Hosp Care Lvl 3 Diagnoses Diverticulitis of intestine with perforation and abscess K57.80 Diverticulitis bleeding: without bleeding Diverticulitis site: unspecified part of intestinal tract (1) Diverticulitis of intestine with perforation and abscess Diverticulitis bleeding: without bleeding Diverticulitis site: unspecified part of intestinal tract Qualified Code(s): K57.80 - Diverticulitis of intestine, part unspecified, with perforation and abscess without bleeding
[2019-04-01] MEDS ORDERED: ACETAMINOPHEN 1,000 MG/100 ML VIAL IV STA (14:01)
[2019-04-01] MEDS ORDERED: TPN IV SCH (16:00)
[2019-04-01] MEDS ORDERED: PERIPHERAL PN IV SCH (16:00)
[2019-04-01] MEDS ORDERED: DEXTROSE 10% 1,000 ML IV PRN (16:00)
--- NOTE | 2019-04-01 19:08 | Hospitalist Progress Note ---
Date of Service April 01, 2019 Assessment & Plan (1) Sepsis: Meet sepsis criteria on admission with tachycardia, elevated WBC and diverticulitis on CT scan Received Levaquin and flagyl IV in the ER WBC 17K on admission WBC back to normal UA positive for nitrate and trace leukocytes Urine cx and blood cx no growth IV Zosyn changed to Ertapenem by ID Will need a total of 21 days course Will need weekly cbc, cmp, esr while on IV abx, (2) Diverticulitis: (3) Abdominal pain: Present on admission with worsening abdominal pain associated with bloating Failed outpatient treatment with Augmentin CT abd showed significant interval worsening of inflammatory changes in the superior pelvis, which appear to emanate from small bowel rather than the sigmoid colon. Numerous foci of extraluminal gas primarily in the superior pelvis though to a lesser extent in the upper abdomen consistent with perforated hollow viscus. Several developing abscesses are evident in the superior pelvis measuring up to 3.[address] abd/pelvis done on 03/31 showed Inflammatory change within the right lower quadrant with mild thickening of the adjacent ileal loops has slightly progressed. There are few focal areas of extraluminal gas/fluid adjacent to the bowel loops consistent with contained perforation/abscesses which have also slightly increased in size. These findings favor a primary abnormality at the small bowel and could represent a perforated Meckel's diverticulitis or perforated small bowel diverticulitis. A localized enteritis or inflammatory bowel disease could also have a similar appearance. Slight progression of the associated peritonitis.A few prominent gas-filled loops of mid small bowel suggesting a partial small bowel obstruction with the transition point located at the thickened ileal loops. Case discussed with surgery who is taking her to OR now for possible abd exploration or bowel resection since CT abd/pelvis worsening IV Zosyn change to IV Ertapenem by ID, will need a total of 21 days course Will need to arrange for outpatient colonoscopy in 6 to 8 weeks Will monitor on med/surge floor 04/01 S/P day#1 small bowel resection for perforated abdominal viscus performed by Dr. Cruz Continue pain controlled with PCP pump Continue to keep NPO TPN starting and continue IV abx Hgb stable WBC increased to 13k Monitor CBC Continue monitor closely GI bleed Mostly related to diverticulitis Hgb stable D/C lovenox subq Will need outpatient colonoscopy Continue monitor closely MARISEL Possible related to poor oral intake Creatinine on admission 1.3 Creatinine improves to 0.5 after IVF Will continue to hold HCTZ On Lisinopril Continue monitor BMP Resolved HTN BP stable Continue to hold HCTZ On Lisinopril in am DVT px heparin subq was discontinue for blood in stool/recent surgery On SCDs/Ambulate Code Status Full Code Admission and Anticipated Discharge Date Admission Date: March 28, 2019 Subjective Pt was seen and examined Lying in bed complaint of abdominal pain She said that pain a little better compare to last night Denies any chest pain, fever, palpitation and SOB Physical Exam Physical Exam: General- No acute distress Head- atraumatic Eyes- PERRL, EOMI, ENT- oropharynx clear Neck- supple, no JVD Lungs- clear to auscultation Heart- regular rhythm; no murmur Abdomen- +tenderness, +BS, Dressing intake Extremities- no calf tenderness Neuro- alert, oriented x 3; PERRL, EOMI; no facial palsy; no dysarthria Skin- warm & dry Results & Data ([facility]) Vital Signs (Past 12 Hours) Vital Signs Temp Pulse Pulse Resp BP Pulse Ox 04/01/19 18:41 36.6 C 91 H 13 148/89 H 91 04/01/19 15:44 36.6 C 97 H 17 127/82 95 04/01/19 13:30 36.5 C 97 H 15 142/86 H 95 04/01/19 11:08 36.5 C 97 H 18 137/84 95 04/01/19 07:35 36.5 C 98 H 16 150/85 H 96 (1) Abdominal pain Abdominal location: generalized Qualified Code(s): R10.84 - Generalized abdominal pain
[2019-04-01] MEDS: HYDROmorphone PCA 30 MG/30 ML IV PRN (21:58)
[2019-04-02] MEDS: SODIUM CHLORIDE 0.9% 1000ML 1,000 ML IV SCH (00:20)
--- NOTE | 2019-04-02 06:12 | Surgery Progress Note ---
Date of Service April 02, 2019 Assessment & Plan (1) Perforated abdominal viscus: now on Tpn- vitals stable- beginning to walk good ur output, NG- expected bilious drain- serous some decreased bowel sounds Leave NG, cont loera for now cont IV atbx, Tpn- await return of GI function Results & Data Vital Signs (Past 12 Hours) Vital Signs Temp Pulse Resp BP Pulse Ox 04/02/19 03:11 36.9 C 87 15 155/99 H 94 04/01/19 22:53 36.8 C 90 18 145/89 H 92 04/01/19 18:41 36.6 C 91 H 13 148/89 H 91 PG Care Time/CCT Total # of Minutes Spent Total Time Spent with Patient: Total time spent is greater than 50% in coordination of care (as documented) at patient's floor/unit and/or counseling patient: Coding Level of Care Code None Diagnoses Perforated abdominal viscus R19.8
[2019-04-02 08:41] LABS: Hematocrit (blood only) 38.3 % (37-47); Hemoglobin 12.9 g/dL (12.0-16.0); Mean Corpuscular Hgb Conc 33.7 g/dL (32-36); Mean Platelet Volume 10.1 fL (7.4-10.4); Platelet Count 395 K/uL (130-400); RDW Coefficient of Variation 13.2 % (11.5-14.5); RDW Standard Deviation 45.9 fL (36.4-46.3); Red Blood Count 4.03 M/uL (4.2-5.4); White Blood Count 11.96 K/uL (4.8-10.8)
[2019-04-02] MEDS: HEPARIN SOD 5,000 UNIT/0.5 ML VIAL SQ SCH ×2 (08:48→22:00)
[2019-04-02] MEDS: NICOTINE 21 MG/24 HR TDSY TD SCH (08:48)
[2019-04-02 09:06] LABS: BUN Creatinine Ratio 19.8 (10-20); Calcium 8.3 mg/dl (8.5-10.1); Creatinine Clr Calc Pharmacy 191.7 ml/min; Est GFR (African American) 136.6; Est GFR (Non-African American) 117.8; Magnesium 2.2 mg/dl (1.8-2.4); Potassium 4.1 mmol/L (3.5-5.1)
[2019-04-02 09:11] LABS: Bilirubin,Total 0.2 mg/dl (0.2-1); Phosphorus 2.2 mg/dl (2.5-4.9); Prealbumin 12.8 mg/dl (20-40)
[2019-04-02] MEDS: ERTAPENEM SODIUM 1,000 MG in SODIUM CHLORIDE 0.9% 50 ML IV SCH (10:47)
[2019-04-02] MEDS ORDERED: SODIUM PHOSPHATE 3 MMOL/1 ML 5 ML VIAL IV STA (11:12)
[2019-04-02] MEDS ORDERED: SODIUM PHOSPHATE 15 MMOL in SODIUM CHLORIDE 0.9% 250 ML IV ONE (11:30)
--- NOTE | 2019-04-02 11:48 | Infectious Disease Progress Nt ---
Date of Service April 02, 2019 Assessment & Plan (1) Diverticulitis of intestine with perforation and abscess: continue ertapenem as this is once daily, blood cultures negative, for picc line. will need weekly cbc, cmp, esr while on IV abx, follow OR cultures - will add IV fluconazole. Admission and Anticipated Discharge Date Admission Date: March 28, 2019 Subjective pt OR cultures growing C. albican. remains on IV abx, tolerating well. now on tpn, ngt remains in place. blood cultures negative, afebrile overnight. wbc improved to 11. Results & Data ([facility]) Vital Signs (Past 12 Hours) Vital Signs Temp Pulse Pulse Resp BP Pulse Ox 04/02/19 08:41 155/102 H 04/02/19 07:59 36.9 C 96 H 16 168/110 H 95 04/02/19 03:11 36.9 C 87 15 155/99 H 94 Laboratory Results Microbiology 03/31/19 Unknown Abdomen Gram Stain - Final 03/31/19 Unknown Abdomen Aerobic and Anaerobic Culture - Preliminary Juanita albicans 03/28/19 01:33 Blood Aerobic Blood Culture - Final No growth in Aerobic bottle after 5 days. 03/28/19 01:33 Blood Anaerobic Blood Culture - Final No growth in Anaerobic bottle after 5 days. 03/28/19 01:42 Blood Aerobic Blood Culture - Final No growth in Aerobic bottle after 5 days. 03/28/19 01:42 Blood Anaerobic Blood Culture - Final No growth in Anaerobic bottle after 5 days. 03/31/19 Unknown Abdomen Gram Stain - Final 03/31/19 Unknown Abdomen Aerobic and Anaerobic Culture - Preliminary Pin-point growth present, reincubating. 03/28/19 00:37 Urine,Clean Catch Urine Culture - Final No growth - less than 1,000 colonies/mL. PG Care Time/CCT Total # of Minutes Spent Total Time Spent with Patient: Total time spent is greater than 50% in coordination of care (as documented) at patient's floor/unit and/or counseling patient: Coding Level of Care Code 78746 Subseq Hosp Care Lvl 1 Diagnoses Diverticulitis of intestine with perforation and abscess K57.80 Diverticulitis bleeding: without bleeding Diverticulitis site: unspecified part of intestinal tract (1) Diverticulitis of intestine with perforation and abscess Diverticulitis bleeding: without bleeding Diverticulitis site: unspecified part of intestinal tract Qualified Code(s): K57.80 - Diverticulitis of intestine, part unspecified, with perforation and abscess without bleeding
[2019-04-02] MEDS ORDERED: TPN IV SCH ×2 (12:00→16:00)
[2019-04-02] MEDS ORDERED: PERIPHERAL PN IV SCH ×2 (12:00→16:00)
--- NOTE | 2019-04-02 12:47 | Hospitalist Progress Note ---
Date of Service April 02, 2019 Assessment & Plan (1) Sepsis: (2) Diverticulitis: (3) Abdominal pain: Sepsis secondary to complicated diverticulitis with bowel perforation and intraabdominal abscess Presented on admission with worsening abdominal pain associated with bloating Failed outpatient treatment with Augmentin CT abd showed significant interval worsening of inflammatory changes in the superior pelvis, which appear to emanate from small bowel rather than the sigmoid colon. Numerous foci of extraluminal gas primarily in the superior pelvis though to a lesser extent in the upper abdomen consistent with perforated hollow viscus. Several developing abscesses are evident in the superior pelvis measuring up to 3.[address] abd/pelvis done on 03/31 showed Inflammatory change within the right lower quadrant with mild thickening of the adjacent ileal loops has slightly pr ogressed. There are few focal areas of extraluminal gas/fluid adjacent to the bowel loops consistent with contained perforation/abscesses which have also slightly increased in size. These findings favor a primary abnormality at the small bowel and could represent a perforated Meckel's diverticulitis or perforated small bowel diverticulitis. A localized enteritis or inflammatory bowel disease could also have a similar appearance. Slight progression of the associated peritonitis.A few prominent gas-filled loops of mid small bowel suggesting a partial small bowel obstruction with the transition point located at the thickened ileal loops. Was evaluated by surgery and had abd exploration, drainage of pelvic abscesses, small bowel resection, appendectomy and abdominal washout on 03/31/19 IV Zosyn change to IV Ertapenem by ID, will need a total of 21 days course Will need to arrange for outpatient colonoscopy in 6 to 8 weeks Continue pain controlled with PCP pump Continue to keep NPO Continue IV ertapenem day 3 Hgb stable WBC increased to 13k yesterday likely reactive post op, now 11K today Monitor CBC Continue monitor closely Continue TPN. Phosphorus was mildly low today at 2.2. Repleted. Monitor electrolytes and signs of refeeding GI bleed Mostly related to diverticulitis Hgb stable Will need outpatient colonoscopy Continue monitor closely (4) MARISEL (acute kidney injury): Resolved Likely due to poor oral intake Creatinine on admission 1.3 Creatinine improves to 0.5 after IVF HCTZ still on hold Continue monitor BMP (5) Hypertension: Poorly controlled Optimize pain control May use prn iv antihypertensives for now while NPO DVT px On SCDs/Ambulate for now Discontinue loera for now Code Status Full Code Admission and Anticipated Discharge Date Admission Date: March 28, 2019 Subjective Patient seen and examined. Reports lower abdominal pain around surgical site Denies any nausea, vomiting. Has not had any bowel movement or passed flatus. Denies any fevers, chills, chest pain, cough, shortness of breath. Physical Exam Constitutional: + obese; no acute distress Eyes: PERRL, conjunctivae normal, anicteric sclerae ENMT: external ear and nose normal, oropharynx normal NGT in situ Neck: trachea midline, no thyromegaly Respiratory: normal respiratory effort, lungs clear to auscultation Cardiovascular: RRR, no murmur, no edema Gastrointestinal (Abdomen): Clean dressing over lower anterior abdomen, drain in situ with sanguinous fluid, +tenderness, reduced BS. Musculoskeletal: no cyanosis or clubbing, extremities motor strength 5/5 Neurologic: PERRL, EOMI, accommodation nl, no face palsy, no dysarthria Psychiatric: A+Ox3, euthymic affect Results & Data ([facility]) Vital Signs (Past 12 Hours) Vital Signs Temp Pulse Pulse Resp BP Pulse Ox 04/02/19 12:18 36.7 C 96 H 16 160/102 H 93 04/02/19 08:41 155/102 H 04/02/19 07:59 36.9 C 96 H 16 168/110 H 95 04/02/19 03:11 36.9 C 87 15 155/99 H 94 Laboratory Results Abnormal lab results 04/01/19 04/01/19 04/02/19 Range/Units 18:14 23:48 06:06 WBC (4.8-10.8) K/uL RBC (4.2-5.4) M/uL Sodium (136-145) mmol/L Creatinine (0.6-1.2) mg/dl Glucose (70-99) mg/dl POC Glucose 104 H 114 H 127 H (70-99) mg/dl Calcium (8.5-10.1) mg/dl Phosphorus (2.5-4.9) mg/dl Prealbumin (20-40) mg/dl 04/02/19 04/02/19 04/02/19 Range/Units 07:52 07:52 12:07 WBC 11.96 H (4.8-10.8) K/uL RBC 4.03 L (4.2-5.4) M/uL Sodium 135 L (136-145) mmol/L Creatinine 0.52 L (0.6-1.2) mg/dl Glucose 111 H (70-99) mg/dl POC Glucose 119 H (70-99) mg/dl Calcium 8.3 L (8.5-10.1) mg/dl Phosphorus 2.2 L (2.5-4.9) mg/dl Prealbumin 12.8 L (20-40) mg/dl (1) Abdominal pain Abdominal location: generalized Qualified Code(s): R10.84 - Generalized abdominal pain
[2019-04-02] MEDS: FLUCONAZOLE 200 MG/100 ML BAG IV SCH (14:42)
[2019-04-03 07:39] LABS: Hematocrit (blood only) 39.1 % (37-47); Hemoglobin 13.4 g/dL (12.0-16.0); Mean Corpuscular Hemoglobin 32.7 pg (25-34); Mean Corpuscular Hgb Conc 34.3 g/dL (32-36); Mean Corpuscular Volume 95.4 fL (80-100); Mean Platelet Volume 9.9 fL (7.4-10.4); Platelet Count 396 K/uL (130-400); RDW Coefficient of Variation 13.4 % (11.5-14.5); RDW Standard Deviation 46.3 fL (36.4-46.3); White Blood Count 11.49 K/uL (4.8-10.8)
--- NOTE | 2019-04-03 07:40 | Surgery Progress Note ---
Date of Service April 03, 2019 Assessment & Plan (1) Perforated abdominal viscus: vitals stable good ur output increased NG output drainage- serous , decreased some bowel sounds loera out leave NG, cont Tpn, cont IV atbx await improved GI function Results & Data Vital Signs (Past 12 Hours) Vital Signs Temp Pulse Resp BP Pulse Ox 04/03/19 03:39 36.8 C 85 15 142/87 H 97 04/02/19 23:33 36.7 C 87 16 136/88 96 PG Care Time/CCT Total # of Minutes Spent Total Time Spent with Patient: Total time spent is greater than 50% in coordination of care (as documented) at patient's floor/unit and/or counseling patient: Coding Level of Care Code None Diagnoses Perforated abdominal viscus R19.8
[2019-04-03 08:07] LABS: BUN Creatinine Ratio 20.3 (10-20); Calcium 8.7 mg/dl (8.5-10.1); Creatinine Clr Calc Pharmacy 171.9 ml/min; Est GFR (African American) 131.8; Est GFR (Non-African American) 113.7; Magnesium 2.2 mg/dl (1.8-2.4); Potassium 3.9 mmol/L (3.5-5.1)
[2019-04-03 08:16] LABS: Phosphorus 3.5 mg/dl (2.5-4.9)
[2019-04-03] MEDS: FLUCONAZOLE 200 MG/100 ML BAG IV SCH (08:49)
[2019-04-03] MEDS: NICOTINE 21 MG/24 HR TDSY TD SCH (08:58)
[2019-04-03] MEDS: HEPARIN SOD 5,000 UNIT/0.5 ML VIAL SQ SCH ×2 (09:03→20:15)
[2019-04-03] MEDS: FAMOTIDINE 20 MG in SYRINGE 3 ML IV SCH ×2 (09:38→20:15)
--- NOTE | 2019-04-03 10:17 | Infectious Disease Progress Nt ---
Date of Service April 03, 2019 Assessment & Plan (1) Diverticulitis of intestine with perforation and abscess: continue ertapenem as this is once daily, blood cultures negative, for picc line. will need weekly cbc, cmp, esr while on IV abx, follow OR cultures - will add IV fluconazole - maintain IV while on tpn with ngt in place. would give min 14 days IV therapy post op. I will be away until 04/07, if urgent ID concerns, will need trnasfer Admission and Anticipated Discharge Date Admission Date: March 28, 2019 Subjective pt remains on ertapenem and fluconazole, remains on tpn. tolerating well. afebrile, wbc slightly decreased, creat normal. OR cultures growing C. albicans and rare anaerobic gnr, no final ID/sensitivities. Results & Data ([facility]) Vital Signs (Past 12 Hours) Vital Signs Temp Pulse Resp BP Pulse Ox 04/03/19 08:12 36.9 C 83 16 133/85 95 04/03/19 03:39 36.8 C 85 15 142/87 H 97 04/02/19 23:33 36.7 C 87 16 136/88 96 Laboratory Results Microbiology 03/31/19 Unknown Abdomen Gram Stain - Final 03/31/19 Unknown Abdomen Aerobic and Anaerobic Culture - Preliminary Juanita albicans Anaerobic gram negative bacill 03/31/19 Unknown Abdomen Gram Stain - Final 03/31/19 Unknown Abdomen Aerobic and Anaerobic Culture - Preliminary Juanita albicans 03/28/19 01:33 Blood Aerobic Blood Culture - Final No growth in Aerobic bottle after 5 days. 03/28/19 01:33 Blood Anaerobic Blood Culture - Final No growth in Anaerobic bottle after 5 days. 03/28/19 01:42 Blood Aerobic Blood Culture - Final No growth in Aerobic bottle after 5 days. 03/28/19 01:42 Blood Anaerobic Blood Culture - Final No growth in Anaerobic bottle after 5 days. 03/28/19 00:37 Urine,Clean Catch Urine Culture - Final No growth - less than 1,000 colonies/mL. PG Care Time/CCT Total # of Minutes Spent Total Time Spent with Patient: Total time spent is greater than 50% in coordination of care (as documented) at patient's floor/unit and/or counseling patient: Coding Level of Care Code 48062 Subseq Hosp Care Lvl 1 Diagnoses Diverticulitis of intestine with perforation and abscess K57.80 Diverticulitis bleeding: without bleeding Diverticulitis site: unspecified part of intestinal tract (1) Diverticulitis of intestine with perforation and abscess Diverticulitis bleeding: without bleeding Diverticulitis site: unspecified part of intestinal tract Qualified Code(s): K57.80 - Diverticulitis of intestine, part unspecified, with perforation and abscess without bleeding
[2019-04-03] MEDS: ERTAPENEM SODIUM 1,000 MG in SODIUM CHLORIDE 0.9% 50 ML IV SCH (10:31)
[2019-04-03] MEDS ORDERED: PERIPHERAL PN IV SCH (16:00)
[2019-04-03] MEDS ORDERED: TPN IV SCH (16:00)
[2019-04-03] MEDS: SODIUM CHLORIDE 0.9% 1000ML 1,000 ML IV SCH (16:36)
--- NOTE | 2019-04-03 17:10 | Hospitalist Progress Note ---
Date of Service April 03, 2019 Assessment & Plan (1) Sepsis: (2) Diverticulitis: (3) Abdominal pain: Sepsis secondary to complicated diverticulitis with bowel perforation and intraabdominal abscess Presented on admission with worsening abdominal pain associated with bloating Failed outpatient treatment with Augmentin CT abd showed significant interval worsening of inflammatory changes in the superior pelvis, which appear to emanate from small bowel rather than the sigmoid colon. Numerous foci of extraluminal gas primarily in the superior pelvis though to a lesser extent in the upper abdomen consistent with perforated hollow viscus. Several developing abscesses are evident in the superior pelvis measuring up to 3.[address] abd/pelvis done on 03/31 showed Inflammatory change within the right lower quadrant with mild thickening of the adjacent ileal loops has slightly pr ogressed. There are few focal areas of extraluminal gas/fluid adjacent to the bowel loops consistent with contained perforation/abscesses which have also slightly increased in size. These findings favor a primary abnormality at the small bowel and could represent a perforated Meckel's diverticulitis or perforated small bowel diverticulitis. A localized enteritis or inflammatory bowel disease could also have a similar appearance. Slight progression of the associated peritonitis.A few prominent gas-filled loops of mid small bowel suggesting a partial small bowel obstruction with the transition point located at the thickened ileal loops. Was evaluated by surgery and had abd exploration, drainage of pelvic abscesses, small bowel resection, appendectomy and abdominal washout on 03/31/19 IV Zosyn change to IV Ertapenem by ID, will need a total of 21 days course Will need to arrange for outpatient colonoscopy in 6 to 8 weeks Continue pain controlled with PCP pump Continue to keep NPO Monitor for bowel recovery Continue IV ertapenem day 3 Hgb stable WBC increased to 13k post op, now 11K today Monitor CBC Continue monitor closely Continue TPN. Continue to monitor electrolytes GI bleed Mostly related to diverticulitis Hgb stable Will need outpatient colonoscopy Continue monitor closely (4) MARISEL (acute kidney injury): Resolved Likely due to poor oral intake Creatinine on admission 1.3 Creatinine improves to 0.5 after IVF HCTZ still on hold Continue monitor BMP (5) Hypertension: Better controlled today Optimize pain control DVT px - hep sq Code Status Full Code Admission and Anticipated Discharge Date Admission Date: March 28, 2019 Subjective Patient seen and examined. Reports abdominal pain is better controlled today with [employer] pump. Reported heartburns earlier which is improved with Pepcid. Still has NG tube in situ. Has no started passing flatus or had any bowel movement. [place] was discontinued yesterday. Has been urinating without any difficulty. No frequency, dysuria, urgency or discharge. Physical Exam Constitutional: + obese; no acute distress Eyes: PERRL, conjunctivae normal, anicteric sclerae ENMT: NGT in situ Respiratory: normal respiratory effort, lungs clear to auscultation Cardiovascular: RRR, no murmur, no edema Gastrointestinal (Abdomen): Clean dressing over lower anterior abdomen, drain in situ with sanguinous fluid, +tenderness, BS still hypoactive Musculoskeletal: no cyanosis or clubbing, extremities motor strength 5/5 Neurologic: PERRL, EOMI, accommodation nl, no face palsy, no dysarthria Psychiatric: A+Ox3, euthymic affect Results & Data ([facility]) Vital Signs (Past 12 Hours) Vital Signs Temp Pulse Resp BP Pulse Ox 04/03/19 15:15 36.9 C 81 16 138/86 94 04/03/19 11:21 36.7 C 82 16 139/89 96 04/03/19 08:12 36.9 C 83 16 133/85 95 Laboratory Results Abnormal lab results 04/02/19 04/03/19 04/03/19 Range/Units 23:36 05:58 07:19 WBC (4.8-10.8) K/uL RBC (4.2-5.4) M/uL Creatinine 0.58 L (0.6-1.2) mg/dl BUN/Creatinine Ratio 20.3 H (10-20) POC Glucose 109 H 107 H (70-99) mg/dl 04/03/19 04/03/19 Range/Units 07:19 12:22 WBC 11.49 H (4.8-10.8) K/uL RBC 4.10 L (4.2-5.4) M/uL Creatinine (0.6-1.2) mg/dl BUN/Creatinine Ratio (10-20) POC Glucose 107 H (70-99) mg/dl (1) Abdominal pain Abdominal location: generalized Qualified Code(s): R10.84 - Generalized abdominal pain
[2019-04-03] MEDS: HYDROmorphone PCA 30 MG/30 ML IV PRN (22:03)
[2019-04-04 06:11] LABS: BUN Creatinine Ratio 20.5 (10-20); Calcium 8.4 mg/dl (8.5-10.1); Creatinine Clr Calc Pharmacy 166.1 ml/min; Est GFR (African American) 130.3; Est GFR (Non-African American) 112.4; Magnesium 2.3 mg/dl (1.8-2.4); Phosphorus 3.8 mg/dl (2.5-4.9); Potassium 4.2 mmol/L (3.5-5.1)
--- NOTE | 2019-04-04 06:47 | Surgery Progress Note ---
Date of Service April 04, 2019 Assessment & Plan (1) Perforated abdominal viscus: vitals stable mobility improved some flatus, abd soft will try clamping NG intermittently path- serosal inflammation of small bowel segment, no evidence of perforation likely from initial perforated diverticulitis with interloop abscess formation and bowel obstruction cont IV atbx cont Tpn Results & Data Vital Signs (Past 12 Hours) Vital Signs Temp Pulse Resp BP Pulse Ox 04/04/19 03:56 36.8 C 83 15 142/86 H 96 04/03/19 23:49 37.0 C 82 14 143/87 H 94 04/03/19 19:34 37.1 C 79 16 134/85 95 PG Care Time/CCT Total # of Minutes Spent Total Time Spent with Patient: Total time spent is greater than 50% in coordination of care (as documented) at patient's floor/unit and/or counseling patient: Coding Level of Care Code None Diagnoses Perforated abdominal viscus R19.8
[2019-04-04] MEDS: FLUCONAZOLE 200 MG/100 ML BAG IV SCH (08:48)
[2019-04-04] MEDS: FAMOTIDINE 20 MG in SYRINGE 3 ML IV SCH ×2 (08:48→21:11)
[2019-04-04] MEDS: NICOTINE 21 MG/24 HR TDSY TD SCH (08:48)
[2019-04-04] MEDS: HEPARIN SOD 5,000 UNIT/0.5 ML VIAL SQ SCH ×2 (08:49→21:11)
[2019-04-04] MEDS: ERTAPENEM SODIUM 1,000 MG in SODIUM CHLORIDE 0.9% 50 ML IV SCH (10:50)
--- NOTE | 2019-04-04 11:47 | Pharmacy Report ---
PHA: Parenteral Nutrition Con - Date of Service April 04, 2019 - Scope Pharmacy was consulted on 04/01 to manage parenteral nutrition orders for this patient. - Subjective The patient is currently on day [#4] of [peripheral] parenteral nutrition - Objective Height: 5 ft 9 in Weight: 116.1 kg Diet: NPO Intake & Output (24hrs):: Intake & Output 04/02/19 04/03/19 04/04/19 04/05/19 06:59 06:59 06:59 06:59 Intake Total 2793.333 / 2793.333 2183.333 / 2183.333 3741.75 / 3741.75 160 / 160 Output Total 3210 / 3210 3900 / 3900 3805 / 3805 Balance -416.667 / -416.667 -1716.667 / -1716.667 -63.25 / -63.25 160 / 160 Weight 116.1 kg 116.1 kg Laboratory Data (Last 24 Hr):: 04/04/19 05:33 Sodium 136 Potassium 4.2 Chloride 103 Carbon Dioxide 32 BUN 12 Creatinine 0.60 Glucose 106 H Calcium 8.4 L Phosphorus 3.8 Magnesium 2.3 Nutrition Assessment:: Please refer to the Notes section of the EMR for the most recent lens grinder rough note. - Plan Per provider, feels that patient is improving at this time and hopes to start enteral nutrition soon. He is aware we are limited with Kcals in ppn due to access/osmolarity. Currently, ppn providing about ~60% of goal Kcals/day - will continue same for today. No plan for central IV access at this time. For day 4 of PN administration, the following will be ordered: Macronutrients Amino acids 75 grams/day Dextrose 150 grams/day Lipids 50 grams/day Micronutrients Combined electrolytes 20 mL - contains 35 mEq Na, 20 meq K, 4.5 mEq Ca, 5 mEq Mg, 35 mEq Cl, 29.5 mEq acetate per 20 mL Sodium phosphate 14 MMol Sodium chloride 100 mEq Sodium acetate 30 mEq Potassium acetate 20 mEq Multivitamins 10 mL Trace Elements 1 mL Additional additives: Total volume 2400 mL to be infused over 24 hrs will provide 1310 kcal/day Final osmolarity 805 mOsm/L (maximum for PPN is 900 mOsm/L) Labs, as indicated, will be ordered per protocol Pharmacy will continue to follow and adjust parenteral nutrition orders on a daily basis. Thank you for allowing us to participate in the care of this patient.
--- NOTE | 2019-04-04 15:43 | Hospitalist Progress Note ---
Date of Service April 04, 2019 Assessment & Plan (1) Sepsis: Meet sepsis criteria on admission with tachycardia, elevated WBC and diverticulitis on CT scan Received Levaquin and flagyl IV in the ER WBC 17K on admission WBC back to normal UA positive for nitrate and trace leukocytes Urine cx and blood cx no growth IV Zosyn changed to Ertapenem by ID Will need a total of 21 days course Will need weekly cbc, cmp, esr while on IV abx, (2) Diverticulitis: (3) Abdominal pain: Sepsis secondary to complicated diverticulitis with bowel perforation and intraabdominal abscess Presented on admission with worsening abdominal pain associated with bloating Failed outpatient treatment with Augmentin CT abd showed significant interval worsening of inflammatory changes in the superior pelvis, which appear to emanate from small bowel rather than the sigmoid colon. Numerous foci of extraluminal gas primarily in the superior pelvis though to a lesser extent in the upper abdomen consistent with perforated hollow viscus. Several developing abscesses are evident in the superior pelvis measuring up to 3.[address] abd/pelvis done on 03/31 showed Inflammatory change within the right lower quadrant with mild thickening of the adjacent ileal loops has slightly progressed. There are few focal areas of extraluminal gas/fluid adjacent to the bowel loops consistent with contained perforation/abscesses which have also slightly increased in size. These findings favor a primary abnormality at the small bowel and could represent a perforated Meckel's diverticulitis or perforated small bowel diverticulitis. A localized enteritis or inflammatory bowel disease could also have a similar appearance. Slight progression of the associated peritonitis.A few prominent gas-filled loops of mid small bowel suggesting a partial small bowel obstruction with the transition point located at the thickened ileal loops. Was evaluated by surgery and had abd exploration, drainage of pelvic abscesses, small bowel resection, appendectomy and abdominal washout on 03/31/19 IV Zosyn change to IV Ertapenem by ID, will need a total of 21 days course Will need to arrange for outpatient colonoscopy in 6 to 8 weeks Pain is currently controlled Continue to keep NPO. Plan intermittent NG tube clamping Continue to monitor bowel recovery. Continue IV ertapenem day 4 Hgb stable Continue TPN. Continue to monitor electrolytes GI bleed Mostly related to diverticulitis Hgb stable Will need outpatient colonoscopy Continue monitor closely (4) MARISEL (acute kidney injury): Resolved Likely due to poor oral intake Creatinine on admission 1.3 Creatinine improves to 0.6 HCTZ still on hold Continue monitor BMP (5) Hypertension: Better controlled today Optimize pain control DVT px - hep sq Code Status Full Code Admission and Anticipated Discharge Date Admission Date: March 28, 2019 Subjective Patient seen and examined. Reports feeling better today. Has started passing flatus since yesterday night. Reports improvement in abdominal pain. Reports some discomfort related to the NG tube. Denies any fevers, chills, nausea, vomiting. Physical Exam Constitutional: + obese; no acute distress Eyes: PERRL, conjunctivae normal, anicteric sclerae ENMT: external ear and nose normal, oropharynx normal NGT in situ Respiratory: normal respiratory effort, lungs clear to auscultation Cardiovascular: RRR, no murmur, no edema Gastrointestinal (Abdomen): Clean dressing over lower anterior abdomen, LILY drain in situ, mild tenderness, normoactive bowel sounds Musculoskeletal: no cyanosis or clubbing, extremities motor strength 5/5 Neurologic: PERRL, EOMI, accommodation nl, no face palsy, no dysarthria Psychiatric: A+Ox3, euthymic affect Results & Data ([facility]) Vital Signs (Past 12 Hours) Vital Signs Temp Pulse Pulse Resp BP Pulse Ox 04/04/19 15:22 36.9 C 82 17 123/80 94 04/04/19 07:06 36.4 C L 81 16 129/85 96 04/04/19 03:56 36.8 C 83 15 142/86 H 96 Laboratory Results Abnormal lab results 04/03/19 04/04/19 04/04/19 Range/Units 23:53 05:33 06:13 Anion Gap 1.0 L (3-11) BUN/Creatinine Ratio 20.5 H (10-20) Glucose 106 H (70-99) mg/dl POC Glucose 102 H 102 H (70-99) mg/dl Calcium 8.4 L (8.5-10.1) mg/dl 04/04/19 Range/Units 12:18 Anion Gap (3-11) BUN/Creatinine Ratio (10-20) Glucose (70-99) mg/dl POC Glucose 116 H (70-99) mg/dl Calcium (8.5-10.1) mg/dl (1) Abdominal pain Abdominal location: generalized Qualified Code(s): R10.84 - Generalized abdominal pain
[2019-04-04] MEDS ORDERED: TPN IV SCH (16:00)
[2019-04-04] MEDS ORDERED: PERIPHERAL PN IV SCH (16:00)
[2019-04-04] MEDS: SODIUM CHLORIDE 0.9% 1000ML 1,000 ML IV SCH ×2 (21:11)
--- NOTE | 2019-04-05 06:41 | Surgery Progress Note ---
Date of Service April 05, 2019 Assessment & Plan (1) Perforated abdominal viscus: passing flatus remove NG- ice only for now cont IV atbx, PPN monitor drain output- may consider removal Results & Data Vital Signs (Past 12 Hours) Vital Signs Temp Pulse Pulse Resp BP Pulse Ox 04/05/19 04:02 36.7 C 80 18 127/84 96 04/04/19 23:01 36.8 C 75 18 131/85 96 04/04/19 20:00 37.0 C 85 16 146/86 H 94 PG Care Time/CCT Total # of Minutes Spent Total Time Spent with Patient: Total time spent is greater than 50% in coordination of care (as documented) at patient's floor/unit and/or counseling patient: Coding Level of Care Code None Diagnoses Perforated abdominal viscus R19.8
[2019-04-05 06:58] LABS: Hematocrit (blood only) 37.4 % (37-47); Hemoglobin 12.4 g/dL (12.0-16.0); Mean Corpuscular Hemoglobin 31.5 pg (25-34); Mean Corpuscular Hgb Conc 33.2 g/dL (32-36); Mean Corpuscular Volume 94.9 fL (80-100); Mean Platelet Volume 10.4 fL (7.4-10.4); Platelet Count 358 K/uL (130-400); RDW Coefficient of Variation 13.3 % (11.5-14.5); RDW Standard Deviation 46.3 fL (36.4-46.3); Red Blood Count 3.94 M/uL (4.2-5.4); White Blood Count 7.18 K/uL (4.8-10.8)
[2019-04-05 07:28] LABS: BUN Creatinine Ratio 20.3 (10-20); Calcium 8.3 mg/dl (8.5-10.1); Creatinine Clr Calc Pharmacy 158.2 ml/min; Est GFR (African American) 128.2; Est GFR (Non-African American) 110.6; Magnesium 2.2 mg/dl (1.8-2.4); Phosphorus 3.5 mg/dl (2.5-4.9); Potassium 4.1 mmol/L (3.5-5.1)
[2019-04-05] MEDS: NICOTINE 21 MG/24 HR TDSY TD SCH (08:40)
[2019-04-05] MEDS: FLUCONAZOLE 200 MG/100 ML BAG IV SCH (08:40)
[2019-04-05] MEDS: HEPARIN SOD 5,000 UNIT/0.5 ML VIAL SQ SCH ×2 (08:42→20:22)
[2019-04-05] MEDS: FAMOTIDINE 20 MG in SYRINGE 3 ML IV SCH ×2 (08:47→20:27)
[2019-04-05] MEDS: ERTAPENEM SODIUM 1,000 MG in SODIUM CHLORIDE 0.9% 50 ML IV SCH (10:22)
--- NOTE | 2019-04-05 15:12 | Hospitalist Progress Note ---
Date of Service April 05, 2019 Assessment & Plan (1) Sepsis: (2) Diverticulitis: (3) Abdominal pain: Sepsis secondary to complicated diverticulitis with bowel perforation and intraabdominal abscess Presented on admission with worsening abdominal pain associated with bloating Failed outpatient treatment with Augmentin CT abd showed significant interval worsening of inflammatory changes in the superior pelvis, which appear to emanate from small bowel rather than the sigmoid colon. Numerous foci of extraluminal gas primarily in the superior pelvis though to a lesser extent in the upper abdomen consistent with perforated hollow viscus. Several developing abscesses are evident in the superior pelvis measuring up to 3.[address] abd/pelvis done on 03/31 showed Inflammatory change within the right lower quadrant with mild thickening of the adjacent ileal loops has slightly pr ogressed. There are few focal areas of extraluminal gas/fluid adjacent to the bowel loops consistent with contained perforation/abscesses which have also slightly increased in size. These findings favor a primary abnormality at the small bowel and could represent a perforated Meckel's diverticulitis or perforated small bowel diverticulitis. A localized enteritis or inflammatory bowel disease could also have a similar appearance. Slight progression of the associated peritonitis.A few prominent gas-filled loops of mid small bowel suggesting a partial small bowel obstruction with the transition point located at the thickened ileal loops. Was evaluated by surgery and had abd exploration, drainage of pelvic abscesses, small bowel resection, appendectomy and abdominal washout on 03/31/19 IV Zosyn change to IV Ertapenem by ID, will need a total of 21 days course Will need to arrange for outpatient colonoscopy in 6 to 8 weeks Pain is currently controlled NG tube discontinued. Continue to monitor bowel recovery. Continue TPN. Continue to monitor electrolytes Final cultures from surgical specimen grew Juanita albicans and Bacteroides thetaiotaomicron Last ID note recommended at least 14 days of IV therapy post op Currently on IV ertapenem and fluconazole Hydromorphone [employer]NT discontinued. Continue IV as needed hydromorphone for now GI bleed Mostly related to diverticulitis Hgb stable Will need outpatient colonoscopy Continue monitor closely (4) MARISEL (acute kidney injury): Resolved Likely due to poor oral intake Creatinine on admission 1.3 Creatinine improves to 0.6 3 HCTZ still on hold Continue monitor BMP (5) Hypertension: Controlled DVT px - hep sq Code Status Full Code Admission and Anticipated Discharge Date Admission Date: March 28, 2019 Subjective Patient seen and examined. Patient continues to pass flatus. Is normal bowel. Abdominal pain has improved significantly. NG tube and surgical drain has been removed Physical Exam Constitutional: + obese; no acute distress Eyes: PERRL, conjunctivae normal, anicteric sclerae Respiratory: normal respiratory effort, lungs clear to auscultation Cardiovascular: RRR, no murmur, no edema Gastrointestinal (Abdomen): Clean dressing over lower anterior abdomen, mild tenderness, normoactive bowel sounds Musculoskeletal: no cyanosis or clubbing, extremities motor strength 5/5 Neurologic: PERRL, EOMI, accommodation nl, no face palsy, no dysarthria Psychiatric: A+Ox3, euthymic affect Results & Data ([facility]) Vital Signs (Past 12 Hours) Vital Signs Temp Pulse Pulse Resp BP Pulse Ox 04/05/19 07:53 36.8 C 80 19 122/81 93 04/05/19 04:02 36.7 C 80 18 127/84 96 Laboratory Results Abnormal lab results 04/05/19 04/05/19 Range/Units 06:12 06:12 RBC 3.94 L (4.2-5.4) M/uL BUN/Creatinine Ratio 20.3 H (10-20) Glucose 104 H (70-99) mg/dl Calcium 8.3 L (8.5-10.1) mg/dl (1) Abdominal pain Abdominal location: generalized Qualified Code(s): R10.84 - Generalized abdominal pain
[2019-04-05] MEDS ORDERED: TPN IV SCH (16:00)
[2019-04-05] MEDS ORDERED: PERIPHERAL PN IV SCH (16:00)
[2019-04-05] MEDS: SODIUM CHLORIDE 0.9% 1000ML 1,000 ML IV SCH (16:07)
[2019-04-05] MEDS: HYDROmorphone INJ 1 MG/ML SYRINGE IV PRN (19:35)
[2019-04-05] MEDS: LORazepam 1 MG/2 ML VIAL IV PRN (22:40)
[2019-04-06] MEDS: HYDROmorphone INJ 1 MG/ML SYRINGE IV PRN ×4 (05:13→19:23)
[2019-04-06] MEDS ORDERED: SENNA 8.8 MG/5 ML UDP PO PRN (05:54)
--- NOTE | 2019-04-06 05:56 | Surgery Progress Note ---
Date of Service April 06, 2019 Assessment & Plan (1) History of bowel resection: hungry ramon NG removal some flatus try clear liquids, no meds yet cont Ppn 1-2 days- until sure po tolerated Results & Data Vital Signs (Past 12 Hours) Vital Signs Temp Pulse Resp BP Pulse Ox 04/05/19 22:43 36.9 C 74 16 113/76 94 PG Care Time/CCT Total # of Minutes Spent Total Time Spent with Patient: Total time spent is greater than 50% in coordination of care (as documented) at patient's floor/unit and/or counseling patient: Coding Level of Care Code None Diagnoses History of bowel resection Z90.49
[2019-04-06 06:15] LABS: BUN Creatinine Ratio 18.3 (10-20); Calcium 8.3 mg/dl (8.5-10.1); Creatinine Clr Calc Pharmacy 149.2 ml/min; Est GFR (African American) 126.3; Potassium 3.9 mmol/L (3.5-5.1)
[2019-04-06 06:16] LABS: Phosphorus 3.7 mg/dl (2.5-4.9)
[2019-04-06] MEDS: NICOTINE 21 MG/24 HR TDSY TD SCH (08:31)
[2019-04-06] MEDS: FLUCONAZOLE 200 MG/100 ML BAG IV SCH (08:31)
[2019-04-06] MEDS: HEPARIN SOD 5,000 UNIT/0.5 ML VIAL SQ SCH ×2 (08:33→19:24)
[2019-04-06] MEDS: FAMOTIDINE 20 MG in SYRINGE 3 ML IV SCH ×2 (08:34→19:43)
[2019-04-06] MEDS: ERTAPENEM SODIUM 1,000 MG in SODIUM CHLORIDE 0.9% 50 ML IV SCH (10:09)
--- NOTE | 2019-04-06 12:33 | Hospitalist Progress Note ---
Date of Service April 06, 2019 Assessment & Plan (1) Sepsis: (2) Diverticulitis: (3) Abdominal pain: Sepsis secondary to complicated diverticulitis with bowel perforation and intraabdominal abscess Presented on admission with worsening abdominal pain associated with bloating Failed outpatient treatment with Augmentin CT abd showed significant interval worsening of inflammatory changes in the superior pelvis, which appear to emanate from small bowel rather than the sigmoid colon. Numerous foci of extraluminal gas primarily in the superior pelvis though to a lesser extent in the upper abdomen consistent with perforated hollow viscus. Several developing abscesses are evident in the superior pelvis measuring up to 3.[address] abd/pelvis done on 03/31 showed Inflammatory change within the right lower quadrant with mild thickening of the adjacent ileal loops has slightly pr ogressed. There are few focal areas of extraluminal gas/fluid adjacent to the bowel loops consistent with contained perforation/abscesses which have also slightly increased in size. These findings favor a primary abnormality at the small bowel and could represent a perforated Meckel's diverticulitis or perforated small bowel diverticulitis. A localized enteritis or inflammatory bowel disease could also have a similar appearance. Slight progression of the associated peritonitis.A few prominent gas-filled loops of mid small bowel suggesting a partial small bowel obstruction with the transition point located at the thickened ileal loops. Was evaluated by surgery and had abd exploration, drainage of pelvic abscesses, small bowel resection, appendectomy and abdominal washout on 03/31/19 IV Zosyn change to IV Ertapenem by ID, will need a total of 21 days course Will need to arrange for outpatient colonoscopy in 6 to 8 weeks Pain is currently controlled Good bowel recovery. 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 Pain well controlled on iv prn hydromorphone GI bleed Mostly related to diverticulitis Hgb stable Will need outpatient colonoscopy Continue monitor closely (4) MARISEL (acute kidney injury): Resolved Likely due to poor oral intake Creatinine on admission 1.3 Creatinine is 0.66 today Continue monitor BMP (5) Hypertension: Well controlled so far Po antihypertensives still on hold DVT px - hep sq Code Status Full Code Admission and Anticipated Discharge Date Admission Date: March 28, 2019 Subjective Patient seen and examined. Reports she has had 2 bowel movements since this morning, small volume soft and brownish. Reports minimal abdominal pain. Has been tolerating clear liquids very well. Denies any nausea, vomiting Physical Exam Constitutional: + obese; no acute distress Eyes: PERRL, conjunctivae normal, anicteric sclerae ENMT: external ear and nose normal, oropharynx normal Respiratory: normal respiratory effort, lungs clear to auscultation Cardiovascular: RRR, no murmur, no edema Gastrointestinal (Abdomen): normal bowel sounds, soft, nontender, no hepatosplenomegaly Musculoskeletal: no cyanosis or clubbing, extremities motor strength 5/5 Neurologic: PERRL, EOMI, accommodation nl, no face palsy, no dysarthria Psychiatric: A+Ox3, euthymic affect Results & Data ([facility]) Vital Signs (Past 12 Hours) Vital Signs Temp Pulse Resp BP Pulse Ox 04/06/19 07:10 36.6 C 84 20 132/79 96 Laboratory Results Abnormal lab results 04/06/19 Range/Units 05:12 Glucose 106 H (70-99) mg/dl Fasting Glucose 106 H (70-99) mg/dl Calcium 8.3 L (8.5-10.1) mg/dl Triglycerides 164 H (0-150) mg/dl (1) Abdominal pain Abdominal location: generalized Qualified Code(s): R10.84 - Generalized abdominal pain
[2019-04-06] MEDS: PERIPHERAL PN IV SCH (16:31)
[2019-04-06] MEDS: TPN IV SCH (16:31)
[2019-04-06] MEDS: LORazepam 1 MG/2 ML VIAL IV PRN (22:29)
[2019-04-07] MEDS: HYDROmorphone INJ 1 MG/ML SYRINGE IV PRN ×3 (01:34→13:21)
--- NOTE | 2019-04-07 06:11 | Surgery Progress Note ---
Date of Service April 07, 2019 Assessment & Plan (1) History of bowel resection: ramon full liq- +bm will stop Ppn after current bag remove javier drain later- lightly pack ends with ribbon gauze possible d/c tomorrow on po atbx Results & Data Vital Signs (Past 12 Hours) Vital Signs Temp Pulse Resp BP Pulse Ox 04/06/19 23:15 36.6 C 76 16 126/78 96 PG Care Time/CCT Total # of Minutes Spent Total Time Spent with Patient: Total time spent is greater than 50% in coordination of care (as documented) at patient's floor/unit and/or counseling patient: Coding Level of Care Code None Diagnoses History of bowel resection Z90.49
[2019-04-07 06:33] LABS: BUN Creatinine Ratio 15.6 (10-20); Calcium 7.9 mg/dl (8.5-10.1); Est GFR (African American) 126.3; Magnesium 2.1 mg/dl (1.8-2.4); Phosphorus 3.5 mg/dl (2.5-4.9); Potassium 3.9 mmol/L (3.5-5.1)
[2019-04-07] MEDS: FAMOTIDINE 20 MG in SYRINGE 3 ML IV SCH (08:28)
[2019-04-07] MEDS: NICOTINE 21 MG/24 HR TDSY TD SCH (08:29)
[2019-04-07] MEDS: FLUCONAZOLE 200 MG/100 ML BAG IV SCH (08:33)
[2019-04-07] MEDS: HEPARIN SOD 5,000 UNIT/0.5 ML VIAL SQ SCH ×2 (09:36→22:41)
[2019-04-07] MEDS: ERTAPENEM SODIUM 1,000 MG in SODIUM CHLORIDE 0.9% 50 ML IV SCH (09:38)
--- NOTE | 2019-04-07 13:28 | Hospitalist Progress Note ---
Date of Service April 07, 2019 Assessment & Plan (1) Sepsis: (2) Diverticulitis: (3) Abdominal pain: Sepsis secondary to complicated diverticulitis with bowel perforation and intraabdominal abscess Presented on admission with worsening abdominal pain associated with bloating Failed outpatient treatment with Augmentin CT abd showed significant interval worsening of inflammatory changes in the superior pelvis, which appear to emanate from small bowel rather than the sigmoid colon. Numerous foci of extraluminal gas primarily in the superior pelvis though to a lesser extent in the upper abdomen consistent with perforated hollow viscus. Several developing abscesses are evident in the superior pelvis measuring up to 3.[address] abd/pelvis done on 03/31 showed Inflammatory change within the right lower quadrant with mild thickening of the adjacent ileal loops has slightly progressed. There are few focal areas of extraluminal gas/fluid adjacent to the bowel loops consistent with contained perforation/abscesses which have also sli ghtly increased in size. These findings favor a primary abnormality at the small bowel and could represent a perforated Meckel's diverticulitis or perforated small bowel diverticulitis. A localized enteritis or inflammatory bowel disease could also have a similar appearance. Slight progression of the associated peritonitis.A few prominent gas-filled loops of mid small bowel suggesting a partial small bowel obstruction with the transition point located at the thickened ileal loops. Was evaluated by surgery and had abd exploration, drainage of pelvic abscesses, small bowel resection, appendectomy and abdominal washout on 03/31/19 IV Zosyn change to IV Ertapenem by ID, will need a total of 21 days course Will need to arrange for outpatient colonoscopy in 6 to 8 weeks Good bowel recovery. Has been having regular bowel movements so far Continue low fiber diet and assess tolerance Discontinue TPN Final cultures from surgical specimen grew Juanita albicans and Bacteroides the taiotaomicron Last ID note recommended at least 14 days of IV therapy post op We will follow-up ID. Final recommendation prior to discharge Currently on IV ertapenem and fluconazole GI bleed Mostly related to diverticulitis Hgb stable Will need outpatient colonoscopy Continue monitor closely (4) MARISEL (acute kidney injury): Resolved Likely due to poor oral intake Creatinine on admission 1.3 Creatinine is 0.66 today (5) Hypertension: Resume p.o. antihypertensives DVT px - hep sq Code Status Full Code Admission and Anticipated Discharge Date Admission Date: March 28, 2019 Subjective Patient seen and examined. Patient has been tolerating full liquid diet and currently being advanced to low fiber diet. Has been having regular bowel movements Reports only pain at incision site Denies any nausea, vomiting. Has no other complaints Physical Exam Constitutional: + well hydrated and + obese; no acute distress Eyes: PERRL, conjunctivae normal, anicteric sclerae ENMT: external ear and nose normal, oropharynx normal Respiratory: normal respiratory effort, lungs clear to auscultation Cardiovascular: RRR, no murmur, no edema Gastrointestinal (Abdomen): normal bowel sounds, soft, nontender, no hepatosplenomegaly Clean dressing over lower abdomen Musculoskeletal: no cyanosis or clubbing, extremities motor strength 5/5 Neurologic: PERRL, EOMI, accommodation nl, no face palsy, no dysarthria Psychiatric: A+Ox3, euthymic affect Results & Data ([facility]) Vital Signs (Past 12 Hours) Vital Signs Temp Pulse Resp BP Pulse Ox 04/07/19 07:33 36.7 C 69 17 123/76 96 Laboratory Results Abnormal lab results 04/07/19 Range/Units 05:42 Chloride 108 H (98-107) mmol/L Glucose 113 H (70-99) mg/dl Calcium 7.9 L (8.5-10.1) mg/dl (1) Abdominal pain Abdominal location: generalized Qualified Code(s): R10.84 - Generalized abdominal pain
[2019-04-07] MEDS: LORazepam 1 MG/2 ML VIAL IV PRN (16:52)
[2019-04-07] MEDS: PERIPHERAL PN IV SCH (17:17)
[2019-04-07] MEDS: TPN IV SCH (17:17)
[2019-04-07] MEDS: ESCITALOPRAM OXALATE 20 MG TAB PO SCH (18:45)
[2019-04-07] MEDS: ACETAMINOPHEN SOL 650 MG/20.3 ML UDC PO PRN (18:47)
[2019-04-07] MEDS ORDERED: TRAZODONE HCL 100 MG TAB PO SCH (21:00)
[2019-04-08] MEDS: ACETAMINOPHEN SOL 650 MG/20.3 ML UDC PO PRN (04:03)
[2019-04-08 07:00] LABS: Hematocrit (blood only) 36.5 % (37-47); Mean Corpuscular Hemoglobin 31.1 pg (25-34); Mean Corpuscular Hgb Conc 32.9 g/dL (32-36); Mean Corpuscular Volume 94.6 fL (80-100); Mean Platelet Volume 10.6 fL (7.4-10.4); Platelet Count 339 K/uL (130-400); RDW Coefficient of Variation 13.4 % (11.5-14.5); RDW Standard Deviation 46.3 fL (36.4-46.3); Red Blood Count 3.86 M/uL (4.2-5.4); White Blood Count 7.05 K/uL (4.8-10.8)
[2019-04-08 07:32] LABS: BUN Creatinine Ratio 15.9 (10-20); Calcium 8.1 mg/dl (8.5-10.1); Creatinine Clr Calc Pharmacy 138.5 ml/min; Est GFR (African American) 121.8; Est GFR (Non-African American) 105.1; Magnesium 2.1 mg/dl (1.8-2.4)
[2019-04-08 07:33] LABS: Phosphorus 3.5 mg/dl (2.5-4.9)
[2019-04-08] MEDS ORDERED: LISINOPRIL/HCTZ 20/12.5MG 1 TAB TAB PO SCH (09:00)
[2019-04-08] MEDS: OXYCODONE HCL IR 5 MG TAB (IMMEDIATE RELEASE) PO PRN ×2 (10:09→15:34)
[2019-04-08] MEDS: NICOTINE 21 MG/24 HR TDSY TD SCH (10:09)
[2019-04-08] MEDS: ESCITALOPRAM OXALATE 20 MG TAB PO SCH (10:10)
[2019-04-08] MEDS: HEPARIN SOD 5,000 UNIT/0.5 ML VIAL SQ SCH (10:13)
[2019-04-08] MEDS: FLUCONAZOLE 200 MG/100 ML BAG IV SCH (10:14)
[2019-04-08] MEDS: ERTAPENEM SODIUM 1,000 MG in SODIUM CHLORIDE 0.9% 50 ML IV SCH (11:16)
--- NOTE | 2019-04-08 13:23 | Discharge Summary ---
Date of Service April 08, 2019 Admission HPI Per Admitting Provider History obtained from patient, family, and records. Medical history significant for hypertension, anxiety/mood disorder, ongoing tobacco abuse. 5-day history of achy lower abdominal pain going to the back with dysuria, some diarrhea, and nausea and fever. Patient sent by PCP to ER last March 25. CT abdomen pelvis showed uncomplicated sigmoid diverticulitis. No abscess. Inflammatory changes associated with the urinary bladder. Patient discharged on Augmentin course. Worsening abdominal discomfort despite compliance with antibiotic regimen. Fever, emesis, some constipation. Junky cough symptoms with shortness of breath. At the ER, patient received IV Levaquin and Flagyl for complicated diverticulitis. Medical History as above No prior colonoscopies. 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 Admission Exam Per Admitting Provider GENERAL: Comfortable, obese, slightly anxious, no respiratory distress SKIN: Normal color, warm HEENT: Bespectacled, pink palpebral conjunctivae, no ptosis, dry buccal mucosa NECK : Supple, short neck, no tenderness CHEST : CTA, no tenderness HEART : Tachycardic , no obvious murmurs ABDOMEN: Some distention, hypogastric tenderness EXTREMITIES : No LE swelling/tenderness, no other conspicuous deformities noted NEUROLOGIC : Coherent, no facial asymmetry, no other gross focality Principal Diagnosis Sepsis Intra-abdominal abscess Status post exploratory laparotomy, drainage of pelvic abscess, small bowel resection, appendectomy and abdominal washout Acute kidney injury Discharge Exam Constitutional + well hydrated and + obese; no acute distress Eyes PERRL, conjunctivae normal, anicteric sclerae ENMT external ear and nose normal, oropharynx normal Respiratory normal respiratory effort, lungs clear to auscultation Cardiovascular RRR, no murmur, no edema Gastrointestinal (Abdomen) normal bowel sounds, soft, nontender, no hepatosplenomegaly Clean dressing over lower abdomen Musculoskeletal no cyanosis or clubbing, extremities motor strength 5/5 Neurologic PERRL, EOMI, accommodation nl, no face palsy, no dysarthria Psychiatric A+Ox3, euthymic affect Discharge Data Allergies Allergy/AdvReac Type Severity Reaction Status Date / Time apple Allergy Hives Verified 03/28/19 01:58 Consultations 03/28/19 00:52 Consult General Surgery Stat ED Decision to Admit Stat 03/31/19 06:44 Consult Infectious Diseases Routine 04/07/19 06:07 Consult Case Management - Discharge Planning Routine Procedures Performed Operation Date: 03/31/19 09:25 Actual Procedures p Exploratory laparotomy, Drainage of Abdominal Abscess, Small Bowel Resection(Not Applicable) - Julian Cruz MD, FACS s Open Appendectomy(Not Applicable) - Julian Cruz MD, FACS Ordered Studies 03/27/19 23:44 CT abd pelvis IV con only Urgent 03/31/19 06:43 CT abd pelvis oral and IV con Urgent 03/31/19 11:23 US - OR guided needle placemen Routine Hospital Course (1) Sepsis: (2) Abdominal abscess: (3) Diverticulitis: (4) Abdominal pain: Sepsis secondary to intraabdominal abscess with bowel perforation Presented on admission with worsening abdominal pain associated with bloating Failed outpatient treatment with Augmentin CT abd showed significant interval worsening of inflammatory changes in the superior pelvis, which appear to emanate from small bowel rather than the sigmoid colon. Numerous foci of extraluminal gas primarily in the superior pelvis though to a lesser extent in the upper abdomen consistent with perforated hollow viscus. Several developing abscesses are evident in the superior pelvis measuring up to 3.[address] abd/pelvis done on 03/31 showed Inflammatory change within the right lower quadrant with mild thickening of the adjacent ileal loops has slightly progressed. There are few focal areas of extraluminal gas/fluid adjacent to the bowel loops consistent with contained perforation/abscesses which have also slightly increased in size. These findings favor a primary abnormality at the small bowel and could represent a perforated Meckel's diverticulitis or perforated small bowel diverticulitis. A localized enteritis or inflammatory bowel disease could also have a similar appearance. Slight progression of the associated peritonitis.A few prominent gas-filled loops of mid small bowel suggesting a partial small bowel obstruction with the transition point located at the thickened ileal loops. Was evaluated by surgery and had abd exploration, drainage of pelvic abscesses, small bowel resection, appendectomy and abdominal washout on 03/31/19 IV Zosyn started on admission was changed to IV Ertapenem by ID. Wound cultures from surgery grew Juanita albicans, Bacteroides thetaiotaomicron, Eggerthella lenta She was also started on IV fluconazole Patient required TPN per surgery Also required Dilaudid SEMICONDUCTOR PACKAGES TESTER for pain management Patient did well postop with bowel recovery. TPN was discontinued as well as SEMICONDUCTOR PACKAGES TESTER. Patient has no complaints at this time. Discussed with Dr. Joseph [ID specialist] who recommends another week of IV ertapenem and fluconazole. Arrangements made for patient to come in for ertapenem and fluconazole infusion at [facility] Patient to follow-up with PCP and surgery outpatient Will need to arrange for outpatient colonoscopy in 6 to 8 weeks (5) MARISEL (acute kidney injury): Resolved Likely due to poor oral intake Creatinine on admission 1.3 Creatinine is 0.71 today (6) Hypertension: Continue home antihypertensive Continue home anxiety medications Total Time Total Time Spent Total Time Spent (In Minutes): 50 Total Time Includes: Examination of the Patient, Discharge Planning, Medication Reconciliation and Communication With Other Providers Discharge Plan Discharge Items Patient Disposition: Home - Home Health Services Reason For Visit: SEPSIS Discharge Diagnosis: Pelvic abscess Bowel obstruction S/P Exploaratory laparotomy, drainage of abscess, bowel resection, appendectomy and washout Activity: As commented below Activity Comment: light activity for 4 weeks Lifting: No more than 10 pounds Bathing Comment: may shower Sexual Activity: When tolerated Exercise Comment: wait 4 weeks Driving/Machine Use: 1 week Non-emergency contact: Primary Care Provider and Surgeon Call non-emergency contact if: your pain is not controlled, your temperature is above 101 and your wound has increased drainage Follow-up/Referrals: Julian Cruz MD, FACS [Physician] - 04/16/19 9:50 am Connie Jaramillo DO [Primary Care Provider] - 04/11/19 1:00 pm (F/U APPT MADE WITH DR JARAMILLO. ARRIVE AT 12:45 P.M. AT THE [facility]. ) Diet: Regular Addtl Attending Provider Instructions: Ms Grant. You came to the hospital for worsening abdominal pain which had failed outpatient treatment. You were evaluated and found to have sepsis with intra-abdominal abscess and bowel obstruction. You had surgery with drainage of the abscess and washout. You were treated with IV antibiotics and IV antifungal. You required total parenteral nutrition afterwards which has been discontinued since resumption of regular diet. We will need to continue antibiotics as prescribed. Please ensure follow-up with your primary doctor as well as a surgeon. Please continue to take your medication as prescribed. It was a pleasure taking care of you. Addtl Spread Cutter Provider Instructions: SPECIAL CARE INSTRUCTIONS: * Cover incisions and change daily for comfort/drainage. * replace gauze roland twice daily with saline wet ribbon gauze * May use ibuprofen for pain as tolerated. * Expect some swelling and bruising. Call your doctor if: * Temperature above 101 degrees * Pain not relieved by pain medicine ordered * There is increased drainage or redness from any incision * You have any unanswered questions or concerns [phone]. FOLLOW UP VISIT: If not already scheduled, please call the office for a follow-up visit. OFFICE PHONE NUMBER: Dr. Cruz Office for next week- staple removal Pending Studies at Discharge: No Stand-Alone Forms: My [facility] [employer], Opioid Pain Management, Smoking Cessation Medications and DC Order Prescriptions: New oxycodone 5 mg tablet 5 - 10 mg PO Q6H PRN (Reason: pain) Qty: 30 RF: 0 ertapenem 1 gram recon soln 1 gm IV DAILY 7 Days RF: 0 fluconazole in NaCl (iso-osm) 200 mg/100 mL piggyback 200 mg IV DAILY 7 Days Qty: 700 RF: 0 Continued lisinopril-hydrochlorothiazide 20-12.5 mg tablet 1 tab PO QAM RF: 0 trazodone 100 mg tablet 100 mg PO HS RF: 0 escitalopram oxalate 20 mg tablet 20 mg PO QAM RF: 0 naproxen 250 mg Tablet 0 mg PO BID PRN (Reason: Pain) RF: 0 Discontinued amoxicillin-pot clavulanate [Augmentin] 875-125 mg tablet 1 tab PO BID Qty: 14 RF: 0 Discharge Orders: Discharge Order (Routine); Ordered 04/08/19 Ordered By: Julisa Florentino/Other Patient Handouts: Prediabetes, A1C Admission Data Admit Date/Time: 03/28/19 02:27 Attending Provider: Julisa Spencer I. Admit Provider: Filemon Brasher Primary Care Provider: Connie Jaramillo Other Providers: Julian Cruz ; Filemon Brasher ; Christi Joseph ; Alexander Juan ; [facility] Other Interventions: Discharge Summary Assessment (RN) Last Done: 04/08/19 15:41 DC Date/Time DO NOT enter until pt leaves facility: 04/08/19 17:35
== END 2019-04-08 17:35 | disposition home health service (06) | DRG 853 ==
LOC: ED 21:05 → 2W 03-28 02:27 → SUATTDRO 03-28 02:27 → 2W 03-28 02:45 → 3W 03-31 16:01

== ENCOUNTER 2024-08-01 05:31 | Observation (INO) ==
--- NOTE | 2024-07-30 08:33 | Anesthesiology Consultation ---
Date of Service July 30, 2024 Assessment & Plan (1) Encounter for pre-operative examination: - check urine test STAT am DOS. - Per nurse practitioner home assessments on 07/24/24: No known infectious disease contacts, current infectious disease symptoms in past 10 days or COVID positive test result in the past 30 days. Chart Review Chart Review: Acceptable Risk for Surgery and Patient NOT seen in Pre Admission Testing History Surgery Operation Date: 08/01/24 07:15 Proposed Procedures p Total Abdominal Hysterectomy with Preservation of Ovaries - Xavi Hicks MD Height/Weight Height: 5 ft 9 in Weight: 111.13 kg Allergies Allergy/AdvReac Type Severity Reaction Status Date / Time apple Allergy Intermediate Hives Verified 07/24/24 10:19 Medications Home Medications Medication Instructions Recorded Confirmed Last Taken lisinopril 20 1 tab PO QAM 02/04/18 07/24/24 09/06/23 mg-hydrochlorothiazide 12.5 mg tablet trazodone 100 mg tablet 100 mg PO HS 03/07/19 07/24/24 09/05/23 Medical Marijuana 1 dose PO HS PRN ptsd 07/24/24 07/24/24 Unknown biotin 10,000 mcg chewable tablet 10,000 mcg PO QAM 07/24/24 07/24/24 Unknown (Hair, Skin and Nails (biotin)) diphenhydramine HCl 25 mg capsule 25 mg PO HS PRN Allergic Symptoms 07/24/24 07/24/24 Unknown (Benadryl) inulin 1.7 gram chewable tablet 1.7 g PO DAILY 07/24/24 07/24/24 Unknown (Fiber Gummies) magnesium 1 tab PO QAM 07/24/24 07/24/24 Unknown norethindrone acetate 5 mg tablet 5 mg PO DAILY 07/24/24 07/24/24 Unknown sertraline 50 mg tablet 50 mg PO QAM 07/24/24 07/24/24 Unknown Past Medical History Medical History (Updated 07/30/24 @ 08:31 by Janice Dillon PA-C) Awareness under anesthesia states woke up during procedure in operating room with bowel resection H/O abdominal abscess ~2014 per pt; prior to bowel resection, caused by abdominal injury History of COVID-19 (12/2021) no hosp; resolved History of diverticulitis last notation in chart was in 2019 HTN (hypertension) Hx of sepsis ~2014 per pt; r/t abdominal abcess PTSD (post-traumatic stress disorder) Seasonal allergies Past Family History Family History Other No pertinent family history in first degree relatives Past Surgical History Surgical History (Updated 07/30/24 @ 08:30 by Janice Dillon PA-C) History of bowel resection ~2014 per pt Hx of wisdom tooth extraction Social History Smoking Status: Current every day smoker tobacco type: cigarettes Smoking cigarettes per day: vapes daily- advised Do You Dip or Chew Tobacco: No Smoking End Date: quit cigarettes ~2 yrs ago Hx Alcohol Use: No alcohol intake frequency: holidays/special occasions only Hx Substance Use: Yes (medical card, uses thc gummies - advised) substance use type: marijuana Last Used Substance Other:: 07/22/24 Testing Laboratory Results 07/28/24 WBC: 7.4 H/H: 13/41 PLATELETS: 282,000 Electrocardiogram Date: 09/06/23 NSR, rate 66 bpm
[2024-08-01 05:57] LABS: Basophils # (auto) 0.03 K/uL (0.00-0.20); Basophils % (auto) 0.4 %; Eosinophils # (auto) 0.42 K/uL (0.00-0.50); Eosinophils % (auto) 5.4 %; Hematocrit (blood only) 39.9 % (37.0-47.0); Hemoglobin 13.3 g/dl (12.0-16.0); Immature Granulocytes # (auto) 0.02 K/uL (0.01-0.20); Immature Granulocytes % (auto) 0.3 %; Lymphocytes # (auto) 1.73 K/uL (1.20-3.40); Lymphocytes % (auto) 22.3 %; Mean Corpuscular Hemoglobin 29.6 pg (25.0-34.0); Mean Corpuscular Hgb Conc 33.3 g/dL (32.0-36.0); Mean Corpuscular Volume 88.9 fL (80.0-100.0); Mean Platelet Volume 10.8 fL (9.4-12.4); Monocytes # (auto) 0.72 K/uL (0.11-0.59); Monocytes % (auto) 9.3 %; Neutrophils # (auto) 4.83 K/uL (1.40-6.50); Neutrophils % (auto) 62.3 %; Platelet Count 303 K/uL (130-400); RDW Coefficient of Variation 13.1 % (11.5-14.5); RDW Standard Deviation 42.6 fL (36.4-46.3); Red Blood Count 4.49 M/uL (4.20-5.40); White Blood Count 7.75 K/ul (4.8-10.8)
[2024-08-01] MEDS: LR 15ML/HR IV SCH (06:04)
[2024-08-01] MEDS ORDERED: ACETAMINOPHEN 1000 MG/100 ML IV IV ONE (06:16)
[2024-08-01] MEDS ORDERED: MoRPHine SULFATE PF 1 MG/ML 10 ML AMP/VIAL ONE (06:16)
[2024-08-01] MEDS ORDERED: PROPOFOL IV EMULSION 10 MG/ML 20 ML VIAL IV ONE (06:17)
[2024-08-01] MEDS ORDERED: ROCURONIUM BROMIDE 10 MG/ML 5 ML VIAL IV ONE (06:17)
[2024-08-01] MEDS ORDERED: LIDOCAINE 2% 2 ML VIAL/AMP(20MG/ML) INFIL ONE (06:17)
[2024-08-01] MEDS ORDERED: fentaNYL citrate PF 100 MCG/2 ML VIAL ONE ×2 (06:17→06:39)
[2024-08-01] MEDS ORDERED: DEXAMETHASONE SOD INJ 4 MG/ML VIAL ONE (06:17)
[2024-08-01] MEDS ORDERED: ONDANSETRON INJ 2 MG/ML 2 ML VIAL ONE ×2 (06:17→09:18)
[2024-08-01] MEDS ORDERED: MIDAZOLAM HCL 1 MG/ML 2ML VIAL ONE (06:18)
--- NOTE | 2024-08-01 06:52 | History & Physical Bridge Note ---
Date of Service August 01, 2024 History & Physical Bridge Note I have examined the patient, reviewed the History & Physical and in the interval since the performance of the History & Physical I have noted the following changes of clinical significance: no changes noted
[2024-08-01] MEDS ORDERED: ATROPINE SULFATE 0.1 MG/ML 10ML SYR IV PRN (06:58)
[2024-08-01] MEDS ORDERED: ONDANSETRON INJ 2 MG/ML 2 ML VIAL IV PRN (06:58)
[2024-08-01] MEDS ORDERED: ePHEDrine sulfate 50 MG/ML AMP IV PRN ×2 (06:58→07:41)
[2024-08-01] MEDS: cefOXitin 2,000 MG in DEXTROSE 5 % MINI-B 50 ML IV SCH (07:18)
[2024-08-01] MEDS ORDERED: ESMOLOL HCL INJ 10 MG/ML 10ML VIAL IV ONE (07:36)
[2024-08-01] MEDS ORDERED: NALOXONE HCL 0.4 MG/1 ML VIAL/CARP IV PRN (07:41)
[2024-08-01] MEDS ORDERED: NALOXONE HCL 1 MG in SODIUM CHLORIDE 0.9% 1,000 ML IV PRN (07:41)
[2024-08-01] MEDS ORDERED: diphenhydrAMINE 50 MG/ML VIAL IV PRN (07:41)
[2024-08-01] MEDS ORDERED: NALBUPHINE HCL INJ 10 MG/ML AMP IV PRN (07:41)
[2024-08-01] MEDS ORDERED: LACTATED RINGER'S 500 ML IV PRN (07:41)
[2024-08-01] MEDS ORDERED: NALOXONE HCL 0.08 MG in SYRINGE 1.8 ML IV PRN (07:41)
[2024-08-01] MEDS ORDERED: ACETAMINOPHEN 1,000 MG/100 ML VIAL IV PRN (07:41)
[2024-08-01] MEDS ORDERED: MoRPHine SULFATE PF 1 MG/ML 10 ML AMP/VIAL INT SPINAL ONE (07:41)
[2024-08-01] MEDS ORDERED: SODIUM CHLORIDE 0.9% 1,000 ML IV SCH (07:45)
[2024-08-01] MEDS ORDERED: NO NARCOTICS OR SEDATIVES SCH (07:45)
[2024-08-01] MEDS ORDERED: DC INTRASPINAL MORPHINE SCH (07:45)
[2024-08-01] MEDS: HEPARIN (PORCINE) 1000 UNIT/ML 10 ML (CATH LAB USE ONLY) ONE (08:09)
[2024-08-01] MEDS ORDERED: cefOXitin SOD 1,000 MG VIAL ONE (08:56)
[2024-08-01] MEDS ORDERED: NEOSTIGMINE METHYLSULFATE 1 MG/ML 10ML VIAL ONE (09:15)
[2024-08-01] MEDS ORDERED: GLYCOPYRROLATE 0.2 MG/ML VIAL ONE (09:15)
--- NOTE | 2024-08-01 10:32 | Operative Report ---
Post Operative Report Pre & Post Diagnosis Operation Date: 08/01/24 07:00 Pre-Op Diagnosis: Fibroid Uterus, Heavy Vaginal Bleeding Post-Op Diagnosis: Fibroid Uterus, Heavy Vaginal Bleeding I identified the patient and participated in the time-out.: Yes Procedure Operation Date: 08/01/24 07:00 Actual Procedures p Total Abdominal Hysterectomy with Preservation of Ovaries(Not Applicable) - Xavi Hicks MD Surgeon Xavi Hicks MD Balance Bridge Assembler Anna Thrasher Estimated Blood Loss 100 Findings Consistent with Post-Op Diagnosis Large fibroid uterus Omental adhesions Specimens Uterus fibroids cervix Drains Andrew drain with safety pin and vaginal cuff Complications none Description of Procedure Patient was brought to the OR correctly identified by armband and conversation. Vaginal prep was done with Betadine solution. [place] catheter was inserted aseptically in the bladder connected to gravity drainage. Compression stockings were applied. Patient's abdomen was painted with an alcohol-based sterilizing solution and then draped in usual sterile fashion. An incision was made through her previous midline scar. This was done by excising the scar. Carrying the end the incision down to the fascia by blunt and sharp dissection. Entering the fascia. Excising the fascia down toward the pelvic brim with the scissors and up towards the umbilicus. Peritoneum was then carefully raised and entered. An O'Juventino-O'Medina self-retaining retractor was inserted and the incision after omental adhesions which were found to the undersurface of the incision were lysed. Several moist laparotomy packs were used to pack off the bowel expose the pelvic cavity. At this time a large fibroid uterus over 10 cm was identified there was a lot of anatomical distortion. Both ovaries were normal but appeared somewhat atrophic. The procedure was done by first ligating both of the round ligaments both proximally and distally. Excising the round ligaments and make an incision above the vesicouterine fold the bladder was then advanced out of the operative field. Posterior leaf of the broad ligaments were punched through bluntly and then a Ruby was used to clamp close to the cornea of the uterus and then distal to this to clamp the ovarian ligament and 2. The ovarian ligament and tube were cut on either side of the uterus. The distal portion was tagged with a Chromic Gut suture and then ligated with a silk suture. Uterine vessels were skeletonized clamped with a curved Jj. Then cut with a stump and then doubly ligated with a Chromic Gut suture. At this time the fundus and fibers of the uterus were removed with electrocautery. The cervix was then grasped with a single-tooth tenaculum. The cervix was removed by sliding off the cervix with a curved Jj on each side. Then cutting with a stump and ligating it with a Chromic Gut suture this was done in 2 steps because of the length of the cardinal ligaments. The cervix was then shelled out with a electrocautery knife. And the edges of the vaginal cuff were grasped with cuff clamps. Each angle of the vaginal cuff was grasped with a straight Jj. A Chromic Gut suture was used to anchor the angles of the vaginal cuff the stumps of the cardinal ligament on both the right and left side. [id number] suture was used to approximate the vaginal mucosa front to back anchoring the distal portion of this stitch in the cardinal ligaments this was done on both the right and left side. Midportion of the vaginal cuff was whipstitched open with a continuous Chromic Gut suture. A [place] drain with a safety pin was then placed into the vaginal cuff and the other and into the cul-de-sac. Reperitonealization was then accomplished. The round ligaments were brought down and tied to the angles of the cuff for support of the cuff. The peritoneal edges were then approximated with a running 3-0 chromic from the right of the at adnexa of the ovary to the middle and then from the left to the middle and then tied to each other. At this time hemostasis was excellent we dissected all of the omentum off the anterior abdominal wall. There were 2 holes in the omentum this was were repaired with a running 3-0 chromic. We then did an anatomical approximation of the anterior abdominal wall. Peritoneum was closed with continuous Chromic Gut suture. The fascia was closed with bites of Dexon anchored at the top of the defect anchored at the bottom of the defect and run from the top down to the middle and then from the bottom up to the middle and then tied to each other subcu was approximated with multiple layers of plain suture and then the skin edges were approximated with about 8 mattress sutures of nylon and then staple clips to approximate the skin edges patient tolerated procedure well I attest to the content of the Intraoperative Record and any orders documented therein. Any exceptions are noted below. distribution center assistant was necessary for adequate exposure in order to provide safe surgery in this particular patient with large fibroids and omental adhesions
[2024-08-01] MEDS ORDERED: PROMETHAZINE HCL INJ 25 MG/ML 1 ML VIAL ONE (10:47)
[2024-08-01] MEDS ORDERED: SODIUM CHLORIDE 0.9% 50 ML BAG ONE (10:47)
[2024-08-01] MEDS: KETOROLAC 30 MG/ML VIAL IV PRN ×2 (10:50→16:06)
[2024-08-01] MEDS: PROMETHAZINE HCL 6.25 MG in SODIUM CHLORIDE 0.9% 50 ML IV PRN (10:52)
[2024-08-01] MEDS: fentaNYL citrate PF 100 MCG/2 ML VIAL IV PRN (11:12)
--- NOTE | 2024-08-01 12:21 | Anesthesiology Progress Note ---
Date of Service August 01, 2024 Anesthesia Post Procedure Vital Signs Vital Signs: Temp Pulse Pulse Resp BP Pulse Ox O2 Del Method 08/01/24 12:00 67 16 132/77 96 Room Air 08/01/24 11:35 98.2 F 75 14 130/78 95 Room Air 08/01/24 11:25 80 16 132/80 94 Room Air 08/01/24 11:15 74 14 128/78 95 Room Air 08/01/24 11:05 72 14 129/78 96 Room Air 08/01/24 10:55 75 18 124/81 98 Room Air 08/01/24 10:45 77 16 129/78 99 Oxymask 08/01/24 10:35 79 14 126/79 100 Oxymask 08/01/24 10:26 98.8 F 92 H 16 122/79 100 Oxymask 08/01/24 06:11 98.4 F 91 H 16 136/83 95 Room Air O2 Flow Rate 08/01/24 12:00 08/01/24 11:35 08/01/24 11:25 08/01/24 11:15 08/01/24 11:05 08/01/24 10:55 08/01/24 10:45 3 08/01/24 10:35 3 08/01/24 10:26 6 08/01/24 06:11 Pain Intensity Abdomen: Pain Intensity: 4 Transfer of Care Handoff Completed per policy Notes Mental Status: alert / awake / arousable and participated in evaluation Patient Amnestic to Procedure: Yes Nausea / Vomiting: adequately controlled Pain: adequately controlled Airway Patency, RR, SpO2: stable & adequate BP & HR: stable & adequate Hydration State: stable & adequate Anesthetic Complications: no major complications apparent and Pt Satisfied with anesthetic care
[2024-08-01] MEDS: HYDROmorphone INJ 0.5 MG/0.5 ML SYR IV PRN (13:04)
[2024-08-01] MEDS: LACTATED RINGER'S 1,000 ML IV SCH (17:36)
[2024-08-01] MEDS: ACETAMINOPHEN 325 MG TAB PO PRN (21:20)
[2024-08-02] MEDS ORDERED: ONDANSETRON INJ 2 MG/ML 2 ML VIAL IV PRN (01:42)
[2024-08-02] MEDS ORDERED: MEPERIDINE HCL 25 MG/ML CARP/VIAL IV PRN (01:42)
[2024-08-02] MEDS: SERTRALINE HCL 50 MG TABLET PO SCH (08:51)
[2024-08-02] MEDS: LISINOPRIL/HCTZ 20/12.5MG 1 TAB TAB PO SCH (08:51)
--- NOTE | 2024-08-02 09:56 | Obstetrical Progress Note ---
Date of Service August 02, 2024 Assessment & Plan Admission and Anticipated Discharge Date Admission Date: August 01, 2024 Subjective abdomen soft and non tender bandage removed incision is clean and dry no calf tenderness passing gas vaginal bleeding scant hgb 13 afebrile Results & Data Vital Signs (Past 12 Hours) Vital Signs Temp Pulse Pulse Resp BP Pulse Ox O2 Del Method 08/02/24 07:45 36.8 C 78 18 116/71 95 Room Air 08/02/24 04:30 36.6 C 72 16 109/70 98 Room Air 08/02/24 01:00 16 96 08/02/24 00:30 36.6 C 72 16 109/73 97 Room Air 08/02/24 00:00 18 98 08/01/24 23:00 16 98 08/01/24 22:00 16 98
[2024-08-02] MEDS: IBUPROFEN 600 MG TAB PO PRN (09:58)
[2024-08-02 10:29] LABS: Hematocrit (blood only) 33.7 % (37.0-47.0); Hemoglobin 11.1 g/dl (12.0-16.0); Mean Corpuscular Hemoglobin 29.8 pg (25.0-34.0); Mean Corpuscular Hgb Conc 32.9 g/dL (32.0-36.0); Mean Corpuscular Volume 90.3 fL (80.0-100.0); Mean Platelet Volume 10.9 fL (9.4-12.4); Platelet Count 235 K/uL (130-400); RDW Coefficient of Variation 13.1 % (11.5-14.5); RDW Standard Deviation 42.8 fL (36.4-46.3); Red Blood Count 3.73 M/uL (4.20-5.40); White Blood Count 8.69 K/ul (4.8-10.8)
[2024-08-02] MEDS: DOCUSATE SODIUM 100 MG CAP PO ONE (16:59)
[2024-08-02] MEDS: DOCUSATE SODIUM 100 MG CAP PO SCH (19:57)
[2024-08-02] MEDS: oxyCODONE/ACETAMINOPHEN 5mg/325mg TAB PO PRN (22:10)
[2024-08-03 04:32] VITALS: TEMP 97.7
--- NOTE | 2024-08-03 07:49 | Obstetrical Progress Note ---
Date of Service August 03, 2024 Assessment & Plan Admission and Anticipated Discharge Date Admission Date: August 01, 2024 Subjective abdomen soft and non tender incision is clean and dry passing gas ambulating well vaginal bleeding scant hgb 11.1 javier drain is out Results & Data Vital Signs (Past 12 Hours) Vital Signs Temp Pulse Resp BP Pulse Ox O2 Del Method 08/03/24 04:30 36.5 C 76 16 118/75 97 Room Air 08/02/24 19:55 Room Air 08/02/24 19:55 36.7 C 79 16 117/71 97 Room Air
--- NOTE | 2024-08-03 08:24 | Discharge Summary ---
Date of Service August 03, 2024 Admission HPI Per Admitting Provider Patient was admitted with a diagnosis of pelvic pain heavy vaginal bleeding. She had had a Mirena IUD inserted. The IUD was expelled spontaneously. Transvaginal examination revealed large fibroid uterus with a distorted endometrial cavity. He was admitted for total abdominal hysterectomy with preservation of both ovaries. Discharge Data Procedures Performed Operation Date: 08/01/24 07:00 Actual Procedures p Total Abdominal Hysterectomy with Preservation of Ovaries(Not Applicable) - Xavi Hicks MD Hospital Course (1) History of hysterectomy for benign disease: The day of admission patient was taken to the OR given prophylactic antibiotics. She underwent total abdominal hysterectomy along with lysis of adhesions. She had a previous history of a partial removal of her colon. And an intra- abdominal infection. At the time of surgery she had omental adhesions to the undersurface of the midline incision. These were taken down at the time of surgery. She also had a large fibroid uterus with a fibroid of about 10 cm. She underwent total abdominal hysterectomy with preservation of both ovaries and an estimated blood loss of 100 mL. The Andrew drain was placed in the vaginal cuff at the time of surgery. Postoperatively she did well she remained afebrile. At the time of discharge she was ambulating well. Eating well. She was passing gas. [place] drain fell out spontaneously on the second postoperative day. On the second postoperative day she was ready to be discharged. Her hemoglobin at the time of discharge was 11.1. She was given prescriptions for pain pills. She was also given the usual postoperative instructions. And she was to return to the office for removal of the yasmine.
[2024-08-03 08:26] VITALS: BP 133/79; RESP 18; O2SAT 95
[2024-08-03 09:23] VITALS: PULSE 76
== END 2024-08-03 09:45 | disposition home or self-care (01) | DRG 743 ==
LOC: ASU 05:31 → INTOOBSV 10:49 → 4E1 10:49